=== PATIENT | female | born 1975 | race Caucasian/White ===

== ENCOUNTER 2017-07-15 10:41 | Outpatient (POV) | payer BC, SELFPAY | END 2017-07-15 12:07 | disposition home or self-care (01) | PROVIDERS: PCP Podiatrist; Visit Provider Podiatrist | DX: E11.610 Type 2 diabetes mellitus with diabetic neuropathic arthropathy (principal); Z89.422 Acquired absence of other left toe(s) | CPT/HCPCS: 99214; G0127 ==

== ENCOUNTER → 2017-10-19 11:19 | Outpatient (CLI) | payer OTHER, MEDICAID, SELFPAY ==
--- NOTE | 2017-10-19 11:20 | XR_ITS ---
XR foot RT min 3V HISTORY: Charcot foot, foot pain ORDERING PHYSICIAN: Evelyn Wagner DPM PATIENT AGE: 42 years COMPARISON: None FINDINGS: No fracture or dislocation. No lytic or blastic change. There is normal mineralization.. The joint spaces are well-preserved. No significant degenerative/arthritic changes. No erosive changes evident. There is a small calcaneal spur. Generalized vascular calcification is present. IMPRESSION: No acute finding, small calcaneal spur
--- NOTE | 2017-10-19 11:20 | XR_ITS ---
XR foot LT min 3V HISTORY: Charcot foot, postoperative evaluation, follow-up surgery ORDERING PHYSICIAN: Evelyn Wagner DPM PATIENT AGE: 42 years COMPARISON: None FINDINGS: No change within the medial bone plate and the long longitudinal screw within the first metatarsal into the medial cuneiform, navicular, and distal talus. No change in the long screw within the head of the third metatarsal through the cuboid. K wires remain in place in the mid foot. Decreased attenuation is once again noted in the mid foot at the base of the fourth metatarsal and lateral cuneiform area. There is diffuse osteopenia. There has been amputation of the PIP joint of the second toe. Diffuse osteopenia involves the heads of the second, third, fourth, and fifth metatarsals with mild flattening of the second metatarsal head IMPRESSION: There is been no significant change compared to the previous exam. Overall no change in the extensive postsurgical changes with osteopenia as described above
== END ==
PROVIDERS: Visit Provider Podiatrist
DX: Z98.890 Other specified postprocedural states (principal)
CPT/HCPCS: 73630

== ENCOUNTER → 2017-11-08 18:30 | Outpatient (REF) | payer MEDICAID, SELFPAY | LOC: LAB 18:30 | PROVIDERS: Visit Provider Podiatrist | DX: Z51.89 Encounter for other specified aftercare (principal) | CPT/HCPCS: 87070; 87077; 87186; 87205 ==

== ENCOUNTER → 2019-02-23 12:19 | Outpatient (CLI) | payer MEDICAID, SELFPAY ==
--- NOTE | 2019-02-23 12:27 | XR_ITS ---
XR foot wt bearing LT 3V HISTORY: ITS.REASON: pain prior fusion ORDERING PHYSICIAN: Evelyn Wagner DPM PATIENT AGE: 43 years COMPARISON: 05/04/2017 FINDINGS: There is a medial bone plate spanning from the distal talus medially to the mid aspect of the first metatarsal with good alignment. A long lag screw is present from the distal aspect of the first metatarsal into the medial cuneiform and navicular and into the distal talus unchanged. An additional lag screws noted within the distal aspect of the third metatarsal with the proximal tip just superficial to the the plantar and lateral aspect of the calcaneus. There are 2 pins directed the talus and navicular into the base of the fourth metatarsal additional and directed from the navicular region to the posterior aspect of the calcaneus. There is diffuse osteopenia and prominent space medial to the cuboid. There remains good alignment with overall no significant change from the previous study. There has been amputation at the PIP joint of the second toe. IMPRESSION: Postsurgical changes with prior fusion as described above overall not significantly changed
--- NOTE | 2019-02-23 12:27 | XR_ITS ---
XR ankle wt bearing RT min 3V HISTORY: ITS.REASON: pain ORDERING PHYSICIAN: Evelyn Wagner DPM PATIENT AGE: 43 years Comparison: None FINDINGS: No fracture or dislocation. No lytic or blastic change. There is normal mineralization.. The joint spaces are well-preserved. No significant degenerative/arthritic changes. No erosive changes evident. IMPRESSION: Negative ankle, no acute finding
--- NOTE | 2019-02-23 12:27 | XR_ITS ---
XR ankle wt bearing LT min 3V HISTORY: ITS.REASON: pain ORDERING PHYSICIAN: Evelyn Wagner DPM PATIENT AGE: 43 years Comparison: None FINDINGS: No fracture or dislocation. No lytic or blastic change. There is normal mineralization.. The joint spaces are well-preserved. No significant degenerative/arthritic changes. No erosive changes evident. IMPRESSION: Negative ankle, no acute finding
--- NOTE | 2019-02-23 12:27 | XR_ITS ---
XR foot wt bearing RT 3V HISTORY: ITS.REASON: pain ORDERING PHYSICIAN: Evelyn Wagner DPM PATIENT AGE: 43 years COMPARISON: None FINDINGS: No fracture or dislocation. No lytic or blastic change. There is normal mineralization.. The joint spaces are well-preserved. No significant degenerative/arthritic changes. No erosive changes evident. There is mild diffuse vascular calcification. IMPRESSION: Negative, no acute finding
== END ==
PROVIDERS: PCP Internal Medicine; Visit Provider Podiatrist
DX: E11.8 Type 2 diabetes mellitus with unspecified complications (principal); Z79.4 Long term (current) use of insulin
CPT/HCPCS: 73610; 73630

== ENCOUNTER → 2020-02-19 12:10 | Outpatient (CLI) | payer MEDICAID, SELFPAY ==
--- NOTE | 2020-02-19 12:13 | XR_ITS ---
PROCEDURE: XR ANKLE WT BEARING LT MIN 3V CLINICAL INDICATION: foot pain Pain COMPARISON: No exams were available for comparison FINDINGS: Lucencies noted in the distal tibia from prior external fixator. Postsurgical changes of the foot. The ankle joint has an unremarkable appearance. IMPRESSION: Negative ankle Dictated by: Gavin Conde MD 02/19/2020 13:43 Electronically signed by Gavin Conde MD in [place] 02/19/2020 13:43
--- NOTE | 2020-02-19 12:13 | XR_ITS ---
PROCEDURE: XR FOOT WT BEARING LT 3V CLINICAL INDICATION: foot pain Charcot foot COMPARISON: FTR3 FOOT-RT-3 VIEWS from 05/04/2017 FTL3 FOOT-LT-3 VIEWS from 06/03/2017 [id number] XR foot RT min 3V from 10/19/2017 [id number] XR foot LT min 3V from 10/19/2017 FINDINGS: FINDINGS: No change within the medial bone plate and the long longitudinal screw within the first metatarsal into the medial cuneiform, navicular, and distal talus. No change in the long screw within the head of the third metatarsal through the cuboid. The proximal aspect of this screw lies within the soft tissues and not within the calcaneus. K wires remain in place in the mid foot. Decreased attenuation is once again noted in the mid foot at the base of the fourth metatarsal and lateral cuneiform area. There is diffuse osteopenia. There has been amputation at the PIP joint of the second toe. Diffuse osteopenia involves the heads of the second, third, fourth, and fifth metatarsals with mild flattening of the second metatarsal head IMPRESSION: There is been no significant change compared to the previous exam. Overall no change in the extensive postsurgical changes with osteopenia as described above Dictated by: Gavin Conde MD 02/19/2020 13:41 Electronically signed by Gavin Conde MD in [place] 02/19/2020 13:41
--- NOTE | 2020-02-19 12:13 | XR_ITS ---
PROCEDURE: XR FOOT WT BEARING RT 3V CLINICAL INDICATION: foot pain COMPARISON: FTR3 FOOT-RT-3 VIEWS from 05/04/2017 FTL3 FOOT-LT-3 VIEWS from 06/03/2017 [id number] XR foot RT min 3V from 10/19/2017 [id number] XR foot LT min 3V from 10/19/2017 XR ANKLE WT BEARING RT MIN 3V from 02/19/2020 FINDINGS: No fracture or dislocation. No lytic or blastic change. There is normal mineralization. The joint spaces are well-preserved. No significant degenerative/arthritic changes. No erosive changes evident. Other findings:Vascular calcification noted. Small calcaneal spur. The ankle mortise is intact. Talar dome has an unremarkable appearance. IMPRESSION: No acute findings. Dictated by: Gavin Conde MD 02/19/2020 13:45 Electronically signed by Gavin Conde MD in [place] 02/19/2020 13:45
--- NOTE | 2020-02-19 12:13 | XR_ITS ---
PROCEDURE: XR FOOT WT BEARING RT 3V CLINICAL INDICATION: foot pain COMPARISON: FTR3 FOOT-RT-3 VIEWS from 05/04/2017 FTL3 FOOT-LT-3 VIEWS from 06/03/2017 [id number] XR foot RT min 3V from 10/19/2017 [id number] XR foot LT min 3V from 10/19/2017 XR ANKLE WT BEARING RT MIN 3V from 02/19/2020 FINDINGS: No fracture or dislocation. No lytic or blastic change. There is normal mineralization. The joint spaces are well-preserved. No significant degenerative/arthritic changes. No erosive changes evident. Other findings:Vascular calcification noted. Small calcaneal spur. The ankle mortise is intact. Talar dome has an unremarkable appearance. IMPRESSION: No acute findings. Dictated by: Gavin Conde MD 02/19/2020 13:45 Electronically signed by Gavin Conde MD in [place] 02/19/2020 13:45
== END ==
PROVIDERS: PCP Internal Medicine; Visit Provider Podiatrist
DX: E11.8 Type 2 diabetes mellitus with unspecified complications (principal); M14.672 Charcot's joint, left ankle and foot
CPT/HCPCS: 73610; 73630

== ENCOUNTER → 2020-03-18 11:49 | Outpatient (CLI) | payer MEDICAID, SELFPAY ==
--- NOTE | 2020-03-18 11:50 | US_ITS ---
APPROVED REPORT Exam Type: Ankle to Brachial Index Floor Director: RT Biju(R) Indications Non-healing Ulcer: Right charcot foot. 2nd toe left foot amputation Risk Factors Hypertension Hyperlipidemia Diabetes Pressures/Indices Right Indices Left Indices Brachial 159.00 mmHg Brachial 175.00 mmHg Low Thigh 213.00 mmHg 1.22 Low Thigh 210.00 mmHg 1.20 Calf 210.00 mmHg 1.20 Calf 0.00 mmHg 0.00 Ankle(PT) 117.00 mmHg 0.67 Ankle(PT) 90.00 mmHg 0.51 Ankle(DP) 198.00 mmHg 1.13 Ankle(DP) 0.00 mmHg 0.00 Digit 112.00 mmHg 0.64 Digit 125.00 mmHg 0.71 Findings RT JEAN CLAUDE=1.1 LT JEAN CLAUDE=0.5 RT TBI=0.6 LT TBI=0.7 Diminished pulses bilaterally Abnormal waveforms distally Conclusion RT JEAN CLAUDE=1.1 LT JEAN CLAUDE=0.5 RT TBI=0.6 LT TBI=0.7 Diminished pulses bilaterally Abnormal waveforms distally Moderate arterial disease on the left Electronically signed by : Gavin Conde MD 03/18/2020 15:32:09
== END ==
PROVIDERS: PCP Internal Medicine; Visit Provider Podiatrist
DX: L97.411 Non-pressure chronic ulcer of right heel and midfoot limited to breakdown of skin (principal)
CPT/HCPCS: 93923

== ENCOUNTER → 2020-04-15 17:38 | Outpatient (CLI) | payer MEDICAID, SELFPAY | PROVIDERS: Visit Provider Podiatrist | DX: Z51.89 Encounter for other specified aftercare (principal); L97.929 Non-pressure chronic ulcer of unspecified part of left lower leg with unspecified severity | CPT/HCPCS: 87070; 87077; 87186; 87205 ==

== ENCOUNTER → 2020-04-24 09:37 | Day surgery (SDC) | payer MEDICAID, SELFPAY ==
[2020-04-24] VITALS (12 sets, daily range): BP systolic 144–201; BP diastolic 91–111; PULSE 78–87; RESP 16–20; TEMP 36.6–37.2; O2SAT 92–97; BMI 40.0
--- NOTE | 2020-04-24 09:00 | IR_ITS ---
APPROVED REPORT Patient Location: Outpatient Sugar Controller: DAVON Dickerson RT (R) PROCEDURES Catheter placement in the left popliteal artery Left popliteal artery selective angiogram Catheter placed in the left superficial femoral artery Left superficial femoral artery selective angiogram Catheter placed in the left common iliac artery Left common iliac artery left internal iliac artery left external iliac artery and left common femoral artery angiogram INDICATION Marty class V claudication, Limb threatening ischemia with poorly healing lower extremity ulcers Informed consent was obtained prior to the procedure. COMPLICATIONS NONE Estimated Blood Loss: LESS THAN 10 ML TECHNIQUE 1% lidocaine used anesthetize the right groin the right femoral artery was accessed via the Salinger technique and a 5 Turkmen sheath was placed in the right femoral artery. A rim catheter was advanced to the distal abdominal aorta and used to cannulate the left common iliac artery. Angiography was performed. Using an advantage wire the wire was advanced to the superficial femoral artery. A JR4 catheter was then advanced to the left popliteal artery and angiography was performed. The catheter was then pulled back to the left superficial femoral artery and angiography was performed. The catheter was then pulled back the left common iliac artery where left common internal and external iliac artery angiography was performed as well as left common femoral angiography. At the end of the procedure the apparatus was removed the sheath was removed good hemostasis was achieved using manual pressure patient was transferred to the postop holding her stable condition ANGIOGRAPHIC RESULTS The left common internal and external iliac arteries are widely patent The left common femoral artery is widely patent The left profunda femoris artery is widely patent The left superficial femoral artery is widely patent with minimal 10% luminal irregularities The left popliteal artery is widely patent with minimal 10% luminal irregularities There is three-vessel runoff below the knee with widely patent vessels with excellent antegrade flow. The anterior tibialis artery does have a focal high-grade stenosis however the flow is normal distal to this stenosis with excellent extensive flow from the other 3 vessels. The posterior tibialis artery also has a focal severe stenosis with normal flow distal to the stenosis IMPRESSION Widely patent arteries as described above with excellent flow into the left foot Poorly healing lower extremity ulcers are either stemming from microvascular disease which is consistent with patient's end-stage nephropathy or possibly from venous insufficiency PLAN 1. Medical management for small vessel disease Electronically signed by : Karthik Aaron, 04/24/2020 14:12:16
[2020-04-24 10:14] LABS: Basophils # 0.1 K/mm3 (0-0.2); Basophils % 1.1 % (0.1-2.0); Eosinophils # 0.5 K/mm3 (0.0-0.4); Eosinophils % 4.4 % (0.1-12.0); Hematocrit 36.6 % (37.0-47.0); Hemoglobin 12.3 g/dL (12.2-16.2); Lymphocytes # 3.3 K/mm3 (0.7-4.5); Lymphocytes % 32.1 % (10-50); Mean Corpuscular HGB Conc 33.7 g/dL (31.8-35.4); Mean Corpuscular Hemoglobin 29.2 pg (27.0-31.2); Mean Corpuscular Volume 86.5 fl (81-99); Mean Platelet Volume 7.4 fl (7.4-10.4); Monocytes # 0.6 K/mm3 (0.1-1.0); Monocytes % 5.8 % (1.7-9.3); Neutrophils # 5.9 K/mm3 (1.8-7.8); Neutrophils % 56.6 % (37.0-80.0); Platelet Count 471 K/mm3 (142-424); Red Blood Count 4.23 M/mm3 (4.20-5.40); Red Cell Distribution Width 13.1 % (11.5-17.5); White Blood Count 10.3 K/mm3 (4.8-10.8)
[2020-04-24 10:47] LABS: Chloride 104 mmol/L (98-107); Potassium 4.6 mmoL/L (3.5-5.1); Sodium 137 mmol/L (136-145)
[2020-04-24 10:50] LABS: Anion Gap 11.6 mEq/L (5-15); Blood Urea Nitrogen 26 mg/dl (7-17); Calcium 9.5 mg/dl (8.4-10.2); Carbon Dioxide 26 mmol/L (22.0-30.0); Creatinine Clearance Estimated 75 mL/min (50-200); Estimated Glomerular Filt Rate 29 ml/min (>60); GFR (African American) 35 ML/MIN (>60); Glucose 187 mg/dl (74-100)
[2020-04-24 11:13] LABS: Coronavirus 19 IgG Antibody Negative (Negative); Coronavirus 19 IgM Antibody Negative (Negative)
== END ==
PROVIDERS: PCP Internal Medicine; Visit Provider Internal Medicine
DX: I70.248 Atherosclerosis of native arteries of left leg with ulceration of other part of lower leg (principal); E11.42 Type 2 diabetes mellitus with diabetic polyneuropathy; E66.9 Obesity, unspecified; L97.929 Non-pressure chronic ulcer of unspecified part of left lower leg with unspecified severity; Z79.4 Long term (current) use of insulin; R60.9 Edema, unspecified; R94.31 Abnormal electrocardiogram [ECG] [EKG]; N18.3 Chronic kidney disease, stage 3 (moderate); E11.22 Type 2 diabetes mellitus with diabetic chronic kidney disease
CPT/HCPCS: 36247; 36415; 75710; 80048; 85025; 86328; 99152; C1725; C1769; C1894; J1644

== ENCOUNTER → 2020-05-07 07:40 | Outpatient (CLI) | payer MEDICAID, SELFPAY ==
--- NOTE | 2020-05-07 07:40 | CA_ITS ---
APPROVED REPORT EXAM: Comprehensive 2D, Doppler, and color-flow Echocardiogram [employer]: Katey Wills RVT Ht: 5 ft 10 in Wt: 278lbs BSA: 2.40 BP: 141/79 mmHg Indications: ABN EKG,DM,HTN,HLD,RENAL DZ 2D Dimensions LVOT 2.19 cm (M/F) 1.5-2.5 M-Mode Dimensions RVDd 2.58 cm (0.9-2.6) LVDd 4.69 cm (3.5-5.7) LVDs 3.18 cm (3.5-5.7) IVSd 1.25 cm (0.6-1.1) PWd 0.86 cm (0.6-1.1) EF (Teich) 60.50% FS 32.20% EDV (Teich) 101.90 mL ESV (Teich) 40.30 mL LV Diastology E/A Ratio 1.13 Mitral Valve MV A Velocity 77.00 (40-130 cm/s) Left Ventricle Left atrium is mildly enlarged, left ventricle is normal size, mild concentric left ventricular hypertrophy, visually estimated ejection fraction 55% with no regional wall motion abnormality, diastolic parameters are inconclusive. Right Ventricle Right atrium and right ventricular normal size and contractility. Aortic Valve Aortic valve is minimally thickened and fibrosed, there is no aortic stenosis or aortic insufficiency. Mitral Valve Mitral valve is grossly normal, there is mild mitral regurgitation. Tricuspid Valve Tricuspid valve grossly normal, there is mild tricuspid regurgitation, tricuspid regurgitation jet velocity is inadequate for calculation of the right ventricular systolic pressure. Pulmonic Valve Pulmonic valve is poorly visualized. Great Vessels Aortic root is normal size. Pericardium No significant pericardial effusion noted Conclusion 1. Mildly enlarged left atrium, normal left ventricular size, mild concentric left ventricular hypertrophy, visually estimated ejection fraction 55% with no regional wall motion abnormality, diastolic parameters are inconclusive. 2. Mild mitral and tricuspid regurgitation. 3. No significant pericardial effusion noted. Electronically signed by : Theodore Finnegan, 05/07/2020 20:42:57
== END ==
PROVIDERS: PCP Internal Medicine; Visit Provider Nurse Practitioner Family
DX: E11.42 Type 2 diabetes mellitus with diabetic polyneuropathy (principal); I10 Essential (primary) hypertension; I73.9 Peripheral vascular disease, unspecified; L97.929 Non-pressure chronic ulcer of unspecified part of left lower leg with unspecified severity; N18.3 Chronic kidney disease, stage 3 (moderate); R94.31 Abnormal electrocardiogram [ECG] [EKG]; Z79.4 Long term (current) use of insulin
CPT/HCPCS: 93306

== ENCOUNTER → 2020-10-16 15:55 | Outpatient (CLI) | payer MEDICAID, SELFPAY ==
--- NOTE | 2020-10-16 16:00 | XR_ITS ---
PROCEDURE: XR FOOT WT BEARING LT 3V CLINICAL INDICATION: wound care Wound on top of the foot COMPARISON: CR [id number] XR foot RT min 3V from 10/19/2017 CR [id number] XR foot LT min 3V from 10/19/2017 CR XR FOOT WT BEARING RT 3V from 02/19/2020 CR XR FOOT WT BEARING LT 3V from 02/19/2020 FINDINGS: Bandage artifact is noted along the dorsal aspect of the midfoot. No change within the medial bone plate and the long longitudinal screw within the first metatarsal into the medial cuneiform, navicular, and distal talus. No change in the long screw within the head of the third metatarsal through the cuboid. The proximal aspect of this screw lies within the soft tissues and not within the calcaneus. K wires remain in place in the mid foot. Decreased attenuation is once again noted in the mid foot at the base of the fourth metatarsal and lateral cuneiform area. There is diffuse osteopenia. There has been amputation at the PIP joint of the second toe. Diffuse osteopenia involves the heads of the second, third, fourth, and fifth metatarsals with mild flattening of the second metatarsal head IMPRESSION: IMPRESSION: There is been no significant change compared to the previous exam. Overall no change in the extensive postsurgical changes with osteopenia as described above Dictated by: Gavin Conde MD 10/16/2020 16:22 Gavin Conde MD in [place] 10/16/2020 16:22
[2020-10-16 16:45] LABS: Basophils # 0.1 K/mm3 (0-0.2); Basophils % 0.7 % (0.1-2.0); Eosinophils # 0.5 K/mm3 (0.0-0.4); Eosinophils % 5.2 % (0.1-12.0); Hematocrit 37.2 % (37.0-47.0); Hemoglobin 12.1 g/dL (12.2-16.2); Lymphocytes # 3.3 K/mm3 (0.7-4.5); Lymphocytes % 32.7 % (10-50); Mean Corpuscular HGB Conc 32.5 g/dL (31.8-35.4); Mean Corpuscular Hemoglobin 27.8 pg (27.0-31.2); Mean Corpuscular Volume 85.7 fl (81-99); Mean Platelet Volume 7.4 fl (7.4-10.4); Monocytes # 0.6 K/mm3 (0.1-1.0); Monocytes % 5.9 % (1.7-9.3); Neutrophils # 5.6 K/mm3 (1.8-7.8); Neutrophils % 55.5 % (37.0-80.0); Platelet Count 441 K/mm3 (142-424); Red Blood Count 4.35 M/mm3 (4.20-5.40); Red Cell Distribution Width 14.4 % (11.5-17.5); White Blood Count 10.1 K/mm3 (4.8-10.8)
[2020-10-16 17:18] LABS: Erythrocyte Sedimentation Rate 118 mm/hr (0-20)
[2020-10-16 17:54] LABS: Alanine Aminotransferase 12 U/L (12-78); Albumin Level 3.5 g/dl (3.5-5.0); Albumin/Globulin Ratio 0.9 (1.1-1.8); Alkaline Phosphatase 87 U/L (38-126); Anion Gap 12.4 mEq/L (5-15); Aspartate Amino Transferase 17 U/L (14-36); Bilirubin,Total 0.3 mg/dl (0.2-1.3); Blood Urea Nitrogen 43 mg/dl (7-17); Calcium 9.9 mg/dl (8.4-10.2); Carbon Dioxide 29 mmol/L (22.0-30.0); Chloride 104 mmol/L (98-107); Estimated Glomerular Filt Rate 35 ml/min (>60); GFR (African American) 42 ML/MIN (>60); Glucose 112 mg/dl (74-100); Potassium 4.4 mmoL/L (3.5-5.1); Sodium 141 mmol/L (136-145); Total Protein,Serum 7.5 g/dl (6.3-8.2)
[2020-10-16 18:01] LABS: C-Reactive Protein 51.3 mg/L (0-4)
== END ==
PROVIDERS: PCP Internal Medicine; Visit Provider Nurse Practitioner
DX: E11.8 Type 2 diabetes mellitus with unspecified complications (principal); Z51.89 Encounter for other specified aftercare; Z79.4 Long term (current) use of insulin
CPT/HCPCS: 36415; 73630; 80053; 85025; 85651; 86140; 87070; 87077; 87186; 87205

== ENCOUNTER → 2020-11-06 10:13 | Outpatient (CLI) | payer MEDICAID, SELFPAY ==
[2020-11-06 10:45] LABS: Basophils # 0.1 K/mm3 (0-0.2); Basophils % 1.7 % (0.1-2.0); Eosinophils # 0.5 K/mm3 (0.0-0.4); Eosinophils % 5.9 % (0.1-12.0); Hematocrit 42.4 % (37.0-47.0); Hemoglobin 13.7 g/dL (12.2-16.2); Lymphocytes % 37.5 % (10-50); Mean Corpuscular HGB Conc 32.2 g/dL (31.8-35.4); Mean Corpuscular Hemoglobin 27.9 pg (27.0-31.2); Mean Corpuscular Volume 86.7 fl (81-99); Mean Platelet Volume 7.2 fl (7.4-10.4); Monocytes # 0.4 K/mm3 (0.1-1.0); Monocytes % 5.1 % (1.7-9.3); Neutrophils % 49.7 % (37.0-80.0); Platelet Count 349 K/mm3 (142-424); Red Blood Count 4.89 M/mm3 (4.20-5.40); Red Cell Distribution Width 14.7 % (11.5-17.5)
[2020-11-06 11:01] LABS: Alanine Aminotransferase 22 U/L (12-78); Albumin Level 3.9 g/dl (3.5-5.0); Albumin/Globulin Ratio 1.1 (1.1-1.8); Alkaline Phosphatase 98 U/L (38-126); Anion Gap 13.6 mEq/L (5-15); Aspartate Amino Transferase 24 U/L (14-36); Bilirubin,Total 0.4 mg/dl (0.2-1.3); Blood Urea Nitrogen 36 mg/dl (7-17); Calcium 10.3 mg/dl (8.4-10.2); Carbon Dioxide 29 mmol/L (22.0-30.0); Chloride 100 mmol/L (98-107); Estimated Glomerular Filt Rate 37 ml/min (>60); GFR (African American) 45 ML/MIN (>60); Globulin 3.6 g/dL (1.3-3.2); Glucose 257 mg/dl (74-100); Potassium 4.6 mmoL/L (3.5-5.1); Sodium 138 mmol/L (136-145); Total Protein,Serum 7.5 g/dl (6.3-8.2)
[2020-11-06 11:02] LABS: Hemoglobin A1C 9.9 % (4.0-6.0)
[2020-11-06 11:14] LABS: Erythrocyte Sedimentation Rate 25 mm/hr (0-20)
== END ==
PROVIDERS: Visit Provider Nurse Practitioner
DX: E11.9 Type 2 diabetes mellitus without complications (principal); L97.529 Non-pressure chronic ulcer of other part of left foot with unspecified severity; Z79.4 Long term (current) use of insulin
CPT/HCPCS: 36415; 80053; 83036; 85025; 85651; 86140

== ENCOUNTER → 2021-01-16 16:51 | Outpatient (CLI) | payer MEDICAID, SELFPAY | PROVIDERS: Visit Provider Podiatrist | DX: Z51.89 Encounter for other specified aftercare (principal); E11.621 Type 2 diabetes mellitus with foot ulcer; L97.929 Non-pressure chronic ulcer of unspecified part of left lower leg with unspecified severity; Z79.4 Long term (current) use of insulin; L97.529 Non-pressure chronic ulcer of other part of left foot with unspecified severity | CPT/HCPCS: 87070; 87077; 87186; 87205 ==

== ENCOUNTER → 2021-07-15 09:40 | Outpatient (CLI) | payer MEDICAID, SELFPAY ==
--- NOTE | 2021-07-15 09:49 | XR_ITS ---
PROCEDURE: XR FOOT WT BEARING LT 3V CLINICAL INDICATION: foot wound COMPARISON: CR [id number] XR foot RT min 3V from 10/19/2017 CR XR FOOT WT BEARING RT 3V from 02/19/2020 CR XR FOOT WT BEARING LT 3V from 02/19/2020 CR XR FOOT WT BEARING LT 3V from 10/16/2020 FINDINGS: S/p midfoot fusion. No change in the bone plate extending from the medial aspect of the 1st metatarsal to the talus. No change in the long lag screws extending from the proximal aspect of the 1st metatarsal into the medial cuneiform, navicular, and talus. No change in the long lag screw extending from the distal aspect of the 1st metatarsal to the cuboid and along the lateral aspect and inferior aspect of the calcaneus. The proximal aspect of the screw is not within the calcaneus. The screw appears to exit the bony cortex of the 3rd metatarsal in its mid aspect. Wires also remain in place. There is good alignment.. Lucency in once again noted medial to the cuboid and the base of the 3rd metatarsal. IMPRESSION: Status post midfoot fusion as described above. No change in the bony hardware with good alignment. Dictated by: Gavin Conde MD 07/15/2021 10:57 Gavin Conde MD in [place] 07/15/2021 10:57
[2021-07-15 10:26] LABS: Basophils # 0.1 K/mm3 (0-0.2); Basophils % 1.3 % (0.1-2.0); Eosinophils # 0.5 K/mm3 (0.0-0.4); Eosinophils % 4.7 % (0.1-12.0); Hematocrit 40.6 % (37.0-47.0); Hemoglobin 13.3 g/dL (12.2-16.2); Lymphocytes # 2.4 K/mm3 (0.7-4.5); Lymphocytes % 23.8 % (10-50); Mean Corpuscular HGB Conc 32.6 g/dL (31.8-35.4); Mean Corpuscular Hemoglobin 29.4 pg (27.0-31.2); Mean Platelet Volume 8.6 fl (7.4-10.4); Monocytes # 0.5 K/mm3 (0.1-1.0); Neutrophils # 6.6 K/mm3 (1.8-7.8); Neutrophils % 65.1 % (37.0-80.0); Platelet Count 590 K/mm3 (142-424); Red Blood Count 4.51 M/mm3 (4.20-5.40); Red Cell Distribution Width 13.1 % (11.5-17.5); White Blood Count 10.1 K/mm3 (4.8-10.8)
[2021-07-15 11:06] LABS: Hemoglobin A1C 10.3 % (4.0-6.0)
[2021-07-15 11:08] LABS: Alanine Aminotransferase 15 U/L (12-78); Albumin Level 3.5 g/dl (3.5-5.0); Alkaline Phosphatase 93 U/L (38-126); Anion Gap 10.9 mEq/L (5-15); Aspartate Amino Transferase 23 U/L (14-36); Bilirubin,Total 0.3 mg/dl (0.2-1.3); Blood Urea Nitrogen 21 mg/dl (7-17); Calcium 10.7 mg/dl (8.4-10.2); Carbon Dioxide 31 mmol/L (22.0-30.0); Chloride 101 mmol/L (98-107); Estimated Glomerular Filt Rate 35 ml/min (>60); GFR (African American) 42 ML/MIN (>60); Globulin 3.4 g/dL (1.3-3.2); Glucose 232 mg/dl (74-100); Potassium 4.9 mmoL/L (3.5-5.1); Sodium 138 mmol/L (136-145); Total Protein,Serum 6.9 g/dl (6.3-8.2)
[2021-07-15 11:13] LABS: C-Reactive Protein 20.8 mg/L (0-4)
== END ==
PROVIDERS: PCP Nurse Practitioner Family; Visit Provider Podiatrist
DX: L03.116 Cellulitis of left lower limb (principal); L97.522 Non-pressure chronic ulcer of other part of left foot with fat layer exposed; L03.112 Cellulitis of left axilla; Z51.89 Encounter for other specified aftercare; Z98.890 Other specified postprocedural states; E11.42 Type 2 diabetes mellitus with diabetic polyneuropathy; L02.612 Cutaneous abscess of left foot; Z79.4 Long term (current) use of insulin
CPT/HCPCS: 36415; 73630; 80053; 83036; 85025; 86140; 87070; 87077; 87186; 87205

== ENCOUNTER → 2021-07-29 10:12 | Outpatient (CLI) | payer MEDICAID, SELFPAY ==
--- NOTE | 2021-07-29 10:15 | XR_ITS ---
PROCEDURE: XR FOOT WT BEARING LT 3V CLINICAL INDICATION: wound encounter COMPARISON: CR XR FOOT WT BEARING RT 3V from 02/19/2020 CR XR FOOT WT BEARING LT 3V from 02/19/2020 CR XR FOOT WT BEARING LT 3V from 10/16/2020 CR XR FOOT WT BEARING LT 3V from 07/15/2021 FINDINGS: S/p midfoot fusion. No change in the bone plate extending from the medial aspect of the 1st metatarsal to the talus. No change in the long lag screws extending from the proximal aspect of the 1st metatarsal into the medial cuneiform, navicular, and talus. No change in the long lag screw extending from the distal aspect of the 1st metatarsal to the cuboid and along the lateral aspect and inferior aspect of the calcaneus. The proximal aspect of the screw is not within the calcaneus. The screw appears to exit the bony cortex of the 3rd metatarsal in its mid aspect. Wires also remain in place. There is good alignment.. Lucency in once again noted medial to the cuboid and the base of the 3rd metatarsal. There is mild generalized soft tissue swelling along the anterior aspect of the foot IMPRESSION: No change status post foot fusion as described above Dictated by: Gavin Conde MD 07/29/2021 17:01 Gavin Conde MD in [place] 07/29/2021 17:01
[2021-07-29 11:27] LABS: Basophils # 0.1 K/mm3 (0-0.2); Basophils % 1.5 % (0.1-2.0); Eosinophils # 0.3 K/mm3 (0.0-0.4); Eosinophils % 4.2 % (0.1-12.0); Hematocrit 39.9 % (37.0-47.0); Lymphocytes # 2.7 K/mm3 (0.7-4.5); Lymphocytes % 33.7 % (10-50); Mean Corpuscular HGB Conc 32.6 g/dL (31.8-35.4); Mean Corpuscular Hemoglobin 28.8 pg (27.0-31.2); Mean Corpuscular Volume 88.6 fl (81-99); Mean Platelet Volume 7.3 fl (7.4-10.4); Monocytes # 0.5 K/mm3 (0.1-1.0); Monocytes % 5.5 % (1.7-9.3); Neutrophils # 4.5 K/mm3 (1.8-7.8); Neutrophils % 55.1 % (37.0-80.0); Platelet Count 396 K/mm3 (142-424); Red Cell Distribution Width 13.2 % (11.5-17.5); White Blood Count 8.1 K/mm3 (4.8-10.8)
[2021-07-29 11:46] LABS: Chloride 103 mmol/L (98-107); Potassium 4.9 mmoL/L (3.5-5.1); Sodium 138 mmol/L (136-145)
[2021-07-29 11:48] LABS: Alanine Aminotransferase 23 U/L (12-78); Aspartate Amino Transferase 29 U/L (14-36); Blood Urea Nitrogen 34 mg/dl (7-17); Estimated Glomerular Filt Rate 37 ml/min (>60); GFR (African American) 45 ML/MIN (>60)
[2021-07-29 11:49] LABS: Albumin Level 3.7 g/dl (3.5-5.0); Albumin/Globulin Ratio 1.2 (1.1-1.8); Alkaline Phosphatase 84 U/L (38-126); Anion Gap 11.9 mEq/L (5-15); Bilirubin,Total 0.2 mg/dl (0.2-1.3); Calcium 9.1 mg/dl (8.4-10.2); Carbon Dioxide 28 mmol/L (22.0-30.0); Globulin 3.1 g/dL (1.3-3.2); Glucose 101 mg/dl (74-100); Total Protein,Serum 6.8 g/dl (6.3-8.2)
[2021-07-29 11:55] LABS: C-Reactive Protein 0.7 mg/L (0-4)
[2021-07-29 15:44] LABS: Erythrocyte Sedimentation Rate 37 mm/hr (0-20)
== END ==
PROVIDERS: PCP Internal Medicine; Visit Provider Podiatrist
DX: L97.923 Non-pressure chronic ulcer of unspecified part of left lower leg with necrosis of muscle (principal); L97.525 Non-pressure chronic ulcer of other part of left foot with muscle involvement without evidence of necrosis; L03.116 Cellulitis of left lower limb; M14.672 Charcot's joint, left ankle and foot; E11.42 Type 2 diabetes mellitus with diabetic polyneuropathy; Z79.4 Long term (current) use of insulin; Z51.89 Encounter for other specified aftercare
CPT/HCPCS: 36415; 73630; 80053; 85025; 85651; 86140

== ENCOUNTER → 2022-09-01 08:53 | Outpatient (CLI) | payer MEDICAID, SELFPAY ==
--- NOTE | 2022-09-01 08:58 | XR_ITS ---
FINAL REPORT CLINICAL HISTORY: foot pain COMPARISON: 07/29/2021 FINDINGS: AP, oblique and lateral views of the left foot were obtained. Again identified are extensive postoperative changes to the foot. The hardware appears intact and unchanged. There is worsening osteopenia. The middle and distal phalanx of the 2nd toe has been resected. On the lateral view, there is subjective worsening involving the anterior subluxation of the talus with respect to the distal tibia. IMPRESSION: Extensive postoperative changes without acute fracture. Possible worsening of the anterior subluxation of the talus with respect to the distal tibia. Reviewed, Interpreted and Dictated by Danika Mays MD Transcribed by Jo Arroyo Authenticated and [facility]
== END ==
PROVIDERS: PCP Nurse Practitioner Family; Visit Provider Podiatrist
DX: M14.672 Charcot's joint, left ankle and foot (principal)
CPT/HCPCS: 73630

== ENCOUNTER → 2022-10-22 13:37 | Outpatient (CLI) | payer MEDICAID, SELFPAY ==
--- NOTE | 2022-10-22 13:59 | XR_ITS ---
FINAL REPORT CLINICAL HISTORY: foot pain and swelling x 3 days COMPARISON: 10/16/2020 FINDINGS: LEFT FOOT Three views of the left foot were obtained. There are postoperative changes throughout the foot with a screw plate, multiple screws and K-wires present. The hardware is not significantly changed. There are moderate and severe degenerative changes. There is a comminuted, subacute appearing fracture of the talar dome. Soft tissue calcifications or bony fragments are seen along the anterior aspect of the tibiotalar joint. There also appears to be a fracture of the anterior inferior tibia. There is anterior subluxation of the main portion of the talus and remainder of the foot. IMPRESSION: Postoperative and degenerative changes throughout the foot as described. Comminuted, subacute appearing fracture of the talar dome. Probable fracture of the anterior inferior tibia. Anterior subluxation of the main portion of the talus and remainder of the foot. Reviewed, Interpreted and Dictated by Roc Burkett III, MD Transcribed by Erica Rosas Authenticated and [facility]
[2022-10-22 14:27] LABS: Basophils # 0.1 K/mm3 (0-0.2); Basophils % 1.3 % (0.1-2.0); Eosinophils # 0.4 K/mm3 (0.0-0.4); Eosinophils % 4.5 % (0.1-12.0); Hematocrit 33.6 % (37.0-47.0); Hemoglobin 10.8 g/dL (12.2-16.2); Lymphocytes # 2.5 K/mm3 (0.7-4.5); Lymphocytes % 28.2 % (10-50); Mean Corpuscular HGB Conc 32.3 g/dL (31.8-35.4); Mean Corpuscular Volume 86.9 fl (81-99); Mean Platelet Volume 7.5 fl (7.4-10.4); Monocytes # 0.5 K/mm3 (0.1-1.0); Monocytes % 5.7 % (1.7-9.3); Neutrophils # 5.2 K/mm3 (1.8-7.8); Neutrophils % 60.2 % (37.0-80.0); Platelet Count 438 K/mm3 (142-424); Red Blood Count 3.87 M/mm3 (4.20-5.40); Red Cell Distribution Width 13.6 % (11.5-17.5); White Blood Count 8.7 K/mm3 (4.8-10.8)
--- NOTE | 2022-10-22 14:32 | XR_ITS ---
FINAL REPORT CLINICAL HISTORY: LT ankle sprain COMPARISON: 09/01/2022 FINDINGS: LEFT ANKLE Three views demonstrate extensive postoperative changes. There is a comminuted fracture of the talar dome and posterior talus. There is anterior subluxation of the main portion of the talus and foot. There is also a fracture of the anterior inferior tibia. There is soft tissue swelling. IMPRESSION: New, comminuted fracture of the talar dome, posterior talus and inferior tibia. Reviewed, Interpreted and Dictated by Roc Burkett III, MD Transcribed by Kezia Brito Authenticated and [facility]
[2022-10-22 14:59] LABS: Erythrocyte Sedimentation Rate 124 mm/hr (0-20)
[2022-10-22 15:03] LABS: Chloride 103 mmol/L (98-107); Potassium 4.4 mmoL/L (3.5-5.1); Sodium 139 mmol/L (136-145)
[2022-10-22 15:06] LABS: Alanine Aminotransferase 14 U/L (12-78); Albumin Level 3.2 g/dl (3.5-5.0); Albumin/Globulin Ratio 0.7 (1.1-1.8); Alkaline Phosphatase 92 U/L (38-126); Anion Gap 11.4 mEq/L (5-15); Aspartate Amino Transferase 19 U/L (14-36); Bilirubin,Total 0.4 mg/dl (0.2-1.3); Blood Urea Nitrogen 37 mg/dl (7-17); Calcium 8.6 mg/dl (8.4-10.2); Carbon Dioxide 29 mmol/L (22.0-30.0); Estimated Glomerular Filt Rate 34 ml/min (>60); GFR (African American) 42 ML/MIN (>60); Globulin 4.3 g/dL (1.3-3.2); Glucose 201 mg/dl (74-100); Total Protein,Serum 7.5 g/dl (6.3-8.2)
[2022-10-22 15:18] LABS: C-Reactive Protein 37.4 mg/L (0-4)
[2022-10-22 16:01] LABS: Hemoglobin A1C 10.3 % (4.0-6.0)
== END ==
PROVIDERS: PCP Internal Medicine; Visit Provider Podiatrist
DX: S93.402A Sprain of unspecified ligament of left ankle, initial encounter (principal); E11.42 Type 2 diabetes mellitus with diabetic polyneuropathy; R60.0 Localized edema; Z79.4 Long term (current) use of insulin
CPT/HCPCS: 36415; 73610; 73630; 80053; 83036; 85025; 85651; 86140

== ENCOUNTER → 2022-11-02 09:44 | Outpatient (CLI) | payer MEDICAID, SELFPAY ==
--- NOTE | 2022-11-02 09:49 | XR_ITS ---
FINAL REPORT CLINICAL HISTORY: foot pain FINDINGS: LEFT FOOT: COMPARISON: October 21, 2022 Three views of the left foot were obtained. There is extensive orthopedic hardware present. There is a sideplate and screws securing the medial foot. There are orthopedic screws in the 1st and 3rd digital rays. There is a widening of the mortise with subluxation and sclerosis. IMPRESSION: Extensive postoperative and neuropathic changes. Reviewed, Interpreted and Dictated by Teddy Choudhury MD Transcribed by Uriah Jenkins Authenticated and . [facility]
--- NOTE | 2022-11-02 09:49 | XR_ITS ---
FINAL REPORT CLINICAL HISTORY: ankle pain FINDINGS: LEFT ANKLE: COMPARISON: October 21, 2022 Three views of the left ankle were obtained. There is extensive orthopedic hardware present. There is a sideplate and screws securing the medial foot. There are orthopedic screws in the 1st and 3rd digital rays. There is a widening of the mortise with subluxation and sclerosis. IMPRESSION: Extensive postoperative and neuropathic changes. Reviewed, Interpreted and Dictated by Teddy Choudhury MD Transcribed by Uriah Jenkins Authenticated and [facility]
--- NOTE | 2022-11-02 10:07 | CT_ITS ---
FINAL REPORT TECHNIQUE: Axial imaging of the left foot was obtained without contrast. Reformatted images were also obtained and reviewed. This study was performed with techniques to keep radiation doses as low as reasonably achievable (ALARA). Individualized dose reduction techniques using automated exposure control or adjustment of mA and/or kV according to the patient's size were employed. CLINICAL HISTORY: charcot FINDINGS: There is overlying cast material and streak artifact from orthopedic hardware securing the 1st digital ray. Orthopedic screw in the 3rd metatarsal extends to the calcaneus but not anchored in the calcaneus. There is inferior subluxation of the cuboid relative to the calcaneus. Synostosis and sclerosis is seen at the intertarsal joints. IMPRESSION: Advanced neuropathic changes as above. Reviewed, Interpreted and Dictated by eTddy Choudhury MD Transcribed by Kezia Brito Authenticated and [facility]
--- NOTE | 2022-11-02 10:07 | CT_ITS ---
FINAL REPORT TECHNIQUE: Axial imaging of the left ankle was obtained without contrast. Reformatted images were also obtained and reviewed. This study was performed with techniques to keep radiation doses as low as reasonably achievable (ALARA). Individualized dose reduction techniques using automated exposure control or adjustment of mA and/or kV according to the patient's size were employed. CLINICAL HISTORY: charcot FINDINGS: There is an overlying cast as well as streak artifact from orthopedic hardware which obscures detail. There is disruption of the mortise. Anterior subluxation and sclerosis is seen of the talus with widening of the joint space and extensive fragmentation consistent with Charcot joint. There is inferior subluxation of the tarsal cuboid relative to the calcaneus seen on sagittal imaging. There is moderate to severe soft tissue edema surrounding the ankle. IMPRESSION: Advanced neuropathic changes with subluxation, sclerosis and fragmentation. Reviewed, Interpreted and Dictated by Teddy Choudhury MD Transcribed by Kezia Brito Authenticated and [facility]
== END ==
PROVIDERS: PCP Internal Medicine; Visit Provider Podiatrist
DX: M25.572 Pain in left ankle and joints of left foot (principal); M14.672 Charcot's joint, left ankle and foot
CPT/HCPCS: 73610; 73630; 73700

== ENCOUNTER → 2022-11-16 09:26 | Outpatient (CLI) | payer MEDICAID, SELFPAY ==
--- NOTE | 2022-11-16 09:29 | XR_ITS ---
FINAL REPORT CLINICAL HISTORY: left foot charcot COMPARISON: PLAIN FILM FROM 11/02/2022, CT LOWER EXTREMITY DATED 11/02/2022 FINDINGS: LEFT ANKLE Three views demonstrate an overlying splint. Sideplate and screws secure the dorsal intertarsal and tarsometatarsal joints. There are orthopedic screws in the 1st and 3rd digital rays. IMPRESSION: No significant change as compared to the prior exam. Reviewed, Interpreted and Dictated by Teddy Choudhury MD Transcribed by Kandice Betancourt Authenticated and [facility]
== END ==
PROVIDERS: PCP Internal Medicine; Visit Provider Podiatrist
DX: M14.672 Charcot's joint, left ankle and foot (principal)
CPT/HCPCS: 73610

== ENCOUNTER → 2023-01-04 11:41 | Outpatient (CLI) | payer MEDICAID, SELFPAY ==
--- NOTE | 2023-01-04 11:44 | US_ITS ---
FINAL REPORT CLINICAL HISTORY: decreased sensation, pre-op testing, charcot foot FINDINGS: ANKLE/BRACHIAL INDICES FINDINGS: Pressure indices are as follows: RIGHT LOWER EXTREMITY: Ankle brachial pressure index: 1.3 Comments: Normal LEFT LOWER EXTREMITY: Ankle brachial pressure index: 1.1 Comments: Normal IMPRESSION: No evidence of significant obstructive peripheral vascular disease of the lower extremities. Reviewed, Interpreted and Dictated by Roc Burkett III, MD Transcribed by Uriah Jenkins Authenticated and [facility]
--- NOTE | 2023-01-04 12:28 | ECG_ITS ---
APPROVED REPORT Exam: Resting ECG HR:72 bpm ECG Measurements Heart Rate 72 AXES AZ 148 P 26 QRSd 141 QRS 102 QT 414 T -7 QTc 439 Conclusion SINUS RHYTHM INDETERMINATE AXIS RIGHT BUNDLE BRANCH BLOCK [120+ ms QRS DURATION, UPRIGHT V1, 40+ ms S IN I/aVL/V4/V5/V6] ABNORMAL ECG UNCONFIRMED REPORT Electronically signed by : José Miguel Alexandre MD 01/05/2023 21:22:31
--- NOTE | 2023-01-04 12:48 | XR_ITS ---
FINAL REPORT CLINICAL HISTORY: Pre op charcot surgery FINDINGS: Two views of the left tibia-fibula were obtained. There is postoperative change of the tibia. There is degenerative and postoperative change of the ankle. There is chronic deformity of the talar dome. There is anterior dislocation of the talus and foot at the tibiotalar joint. IMPRESSION: Anterior dislocation of the talus and foot at the tibiotalar joint. Reviewed, Interpreted and Dictated by Roc Burkett III, MD Transcribed by Uriah Jenkins Authenticated and [facility]
--- NOTE | 2023-01-04 12:48 | XR_ITS ---
FINAL REPORT CLINICAL HISTORY: pre-op charcot foot surgery..diabetic,,htn FINDINGS: Two views of the chest were obtained. The heart size and pulmonary vascularity are within normal limits. The mediastinum is normal. No acute pulmonary abnormality is identified. There is no pneumothorax. The bony thorax is intact. IMPRESSION: No active cardiopulmonary disease. Reviewed, Interpreted and Dictated by Roc Burkett III, MD Transcribed by Uriah Jenkins Authenticated and [facility]
--- NOTE | 2023-01-04 12:48 | XR_ITS ---
FINAL REPORT CLINICAL HISTORY: left ankle charcot FINDINGS: LEFT ANKLE: Three views of the left ankle were obtained. There are degenerative changes of the ankle and foot. There is chronic deformity of the talar dome. There are several soft tissue calcifications. There is a anterior dislocation of the talus and foot at the tibiotalar joint. IMPRESSION: Chronic and postoperative changes. Anterior dislocation of the talus and foot. Reviewed, Interpreted and Dictated by Roc Burkett III, MD Transcribed by Uriah Jenkins Authenticated and [facility]
--- NOTE | 2023-01-04 12:48 | XR_ITS ---
FINAL REPORT CLINICAL HISTORY: foot pain FINDINGS: LEFT CALCANEUS 2 views were obtained. There are extensive postoperative changes. There is deformity of the talus. There is anterior dislocation of the talus and foot. IMPRESSION: Anterior dislocation of the talus and foot. Reviewed, Interpreted and Dictated by Roc Burkett III, MD Transcribed by Uriah Jenkins Authenticated and [facility]
--- NOTE | 2023-01-04 12:48 | XR_ITS ---
FINAL REPORT CLINICAL HISTORY: left foot charcot FINDINGS: LEFT FOOT: Three views of the left foot were obtained. There are degenerative changes of the of the foot with a side plate, multiple screws in several wires. There is severe degenerative change of the midfoot. There is chronic deformity of the talar dome. There are several soft tissue calcifications. There is a anterior dislocation of the talus and foot at the tibiotalar joint. IMPRESSION: Chronic and postoperative changes. Anterior dislocation of the talus and foot. Reviewed, Interpreted and Dictated by Roc Burkett III, MD Transcribed by Uriah Jenkins Authenticated and [facility]
[2023-01-04 14:11] LABS: Basophils # 0.1 K/mm3 (0-0.2); Eosinophils # 0.3 K/mm3 (0.0-0.4); Eosinophils % 3.3 % (0.1-12.0); Hematocrit 38.4 % (37.0-47.0); Hemoglobin 12.6 g/dL (12.2-16.2); Hemoglobin A1C 8.9 % (4.0-6.0); Lymphocytes % 30.9 % (10-50); Mean Corpuscular HGB Conc 32.8 g/dL (31.8-35.4); Mean Corpuscular Hemoglobin 28.9 pg (27.0-31.2); Mean Corpuscular Volume 87.9 fl (81-99); Mean Platelet Volume 7.9 fl (7.4-10.4); Monocytes # 0.6 K/mm3 (0.1-1.0); Neutrophils # 5.7 K/mm3 (1.8-7.8); Neutrophils % 58.8 % (37.0-80.0); Platelet Count 320 K/mm3 (142-424); Red Blood Count 4.37 M/mm3 (4.20-5.40); Red Cell Distribution Width 14.9 % (11.5-17.5); White Blood Count 9.7 K/mm3 (4.8-10.8)
[2023-01-04 14:24] LABS: Chloride 101 mmol/L (98-107); Potassium 4.9 mmoL/L (3.5-5.1); Sodium 135 mmol/L (136-145)
[2023-01-04 14:27] LABS: Alanine Aminotransferase 18 U/L (12-78); Albumin Level 3.4 g/dl (3.5-5.0); Alkaline Phosphatase 151 U/L (38-126); Anion Gap 11.9 mEq/L (5-15); Aspartate Amino Transferase 21 U/L (14-36); Bilirubin,Total 0.2 mg/dl (0.2-1.3); Blood Urea Nitrogen 60 mg/dl (7-17); Carbon Dioxide 27 mmol/L (22.0-30.0); Estimated Glomerular Filt Rate 19 ml/min (>60); GFR (African American) 23 ML/MIN (>60); Globulin 3.3 g/dL (1.3-3.2); Total Protein,Serum 6.7 g/dl (6.3-8.2)
[2023-01-04 14:28] LABS: Glucose 192 mg/dl (74-100)
[2023-01-04 14:33] LABS: C-Reactive Protein 16.5 mg/L (0-4)
[2023-01-04 14:57] LABS: Erythrocyte Sedimentation Rate 72 mm/hr (0-20)
[2023-01-13 05:31] LABS: 1,25 Dihydroxy Vitamin D 20 pg/mL (.); 1,25-Dihydroxy, Vitamin D-2 10 pg/mL (.); 1,25-Dihydroxy, Vitamin D-3 10 pg/mL (.)
== END ==
LOC: RT 11:41
PROVIDERS: PCP Internal Medicine; Visit Provider Podiatrist
DX: E11.42 Type 2 diabetes mellitus with diabetic polyneuropathy (principal); E11.610 Type 2 diabetes mellitus with diabetic neuropathic arthropathy; I73.9 Peripheral vascular disease, unspecified; Z79.4 Long term (current) use of insulin; M14.672 Charcot's joint, left ankle and foot; S92.102A Unspecified fracture of left talus, initial encounter for closed fracture; S82.892G Other fracture of left lower leg, subsequent encounter for closed fracture with delayed healing; S92.14 Dome fracture of talus; E55.9 Vitamin D deficiency, unspecified
CPT/HCPCS: 36415; 71046; 73590; 73610; 73630; 73650; 80053; 82652; 83036; 85025; 85651; 86140; 93005; 93923

== ENCOUNTER → 2023-01-07 10:43 | Outpatient (CLI) | payer MEDICAID, SELFPAY | PROVIDERS: PCP Nurse Practitioner Family; Visit Provider Internal Medicine | DX: R06.02 Shortness of breath (principal) | CPT/HCPCS: 93306 ==

== ENCOUNTER 2023-01-13 06:28 | Observation (INO) | payer MEDICAID, SELFPAY ==
[2023-01-12 11:29] VITALS: BMI 41.4
[2023-01-13] VITALS (18 sets, daily range): BP systolic 92–161; BP diastolic 51–90; PULSE 72–88; RESP 15–18; TEMP 36.4–37.3; O2SAT 95–99; BMI 42.9
[2023-01-13 06:38] LABS: Coronavirus 19, PCR Not Detected (NotDetected); Influenza A, PCR Not Detected (NotDetected); Influenza B, PCR Not Detected (NotDetected)
[2023-01-13 07:03] LABS: POC Glucose,Bedside 91 (70-110)
[2023-01-13 07:08] LABS: Anion Gap 15.4 mEq/L (5-15); Blood Urea Nitrogen 49 mg/dl (7-17); Calcium 9.4 mg/dl (8.4-10.2); Carbon Dioxide 29 mmol/L (22.0-30.0); Chloride 99 mmol/L (98-107); Creatinine Clearance Estimated 35 mL/min (50-200); Estimated Glomerular Filt Rate 25 ml/min (>60); GFR (African American) 30 ML/MIN (>60); Glucose 98 mg/dl (74-100); Potassium 4.4 mmoL/L (3.5-5.1); Sodium 139 mmol/L (136-145)
[2023-01-13 07:10] LABS: HCG Qualitative, Serum Negative (Negative)
--- NOTE | 2023-01-13 08:57 | P.PN_ITS ---
[facility] Disclaimer: The information contained in this section may have been updated after the patient was seen, as this information can be updated by other users. Medical History Abnormal ankle brachial index (JEAN CLAUDE) Abnormal EKG Cataracts, bilateral CKD (chronic kidney disease) Edema History of amputation of toe History of diabetes mellitus History of retinal detachment HLD (hyperlipidemia) HTN (hypertension) Nonhealing ulcer of left lower extremity Surgical History History of History of foot operation History of skin graft Family History Other Family history of CVA Family history of breast cancer Family history of diabetes mellitus Family history of heart disease Social History Smoking Status: Never smoker second hand exposure: No alcohol intake: never substance use type: denies use current occupational status: unemployed Travel in the last 8 weeks: None adopted: Yes household members: spouse housing: house current occupational exposures/hazards: No caffeine: Yes [facility] Anesthesia Checklist Patient Identification Patient Identification: Arm Band Structural Data Admitted From: Home Planned Operative Procedure/s: Left Charcot Reconstruction, External Fixation Device Application Consent for Planned Operative Procedure(s) Verified: Yes Verified Documents: Surgical Consent and History and Physical NPO Status Verified Time NPO: 00:00 Additional verifications Anesthesia Reactions: No Hx Blood Transfusions: No Blood Transfusion Reaction: No Airway Assessment C-Spine Mobility Assessed: Yes TMJ Mobility Assessed: Yes Dentition: Good Dentition Neurological Assessment Level of Consciousness: Awake and Alert Anesthesia Plan Anesthesia Risk discussed: Yes Anesthesia Plan: Verified ASA Class: III Anesthesia Type: General w/block (Left Popliteal/Femoral Nerve Block. Risks/benefits of blocks discussed. Pt verbalized understanding. Femoral nerve block chosen after unable to get good visualization with adductor canal.)
--- NOTE | 2023-01-13 09:02 | HMH.PHAINT1 ---
Pharmacy Intervention Comments: Discharge counseling completed. Patient had no new meds on her med list, but a few new ones were sent in for her yesterday. She said the provider had spoken with her a bit about them, but I still outlined which were new (levofloxacin, doxycycline, Lovenox, fluconazole, oxycodone). I said possible side effects of the antibiotics included stomach upset or diarrhea and said to take with food to help avoid this. Also said the oxycodone was every 4 to 6 hours only as needed for pain and may make her drowsy. Patient was told to hold her metformin until her next follow up with her PCP. She verbalized understanding and had no questions.
--- NOTE | 2023-01-13 09:03 | HMH.PHAINT1 ---
Pharmacy Intervention Comments: Home medication list verified by list from outside pharmacy.
--- NOTE | 2023-01-13 10:11 | SUR.OPER ---
0930- FAMILY UPDATED PER MD ORDER AT THIS TIME BY KATTY MONTANO. EVERYTHING IS GOING WELL.
--- NOTE | 2023-01-13 10:30 | SUR.OPER ---
1030- FAMILY UPDATED PER MD ORDER BY JULIA MONTANO. PLEASE LET THEM KNOW THAT THE HARDWARE IS OUT AND WE ARE WORKING ON THE ANKLE FUSION.
--- NOTE | 2023-01-13 12:30 | SUR.OPER ---
1230- FAMILY UPDATED PER MD ORDER BY KATTY MONTANO. EVERYTHING IS GOING WELL.
--- NOTE | 2023-01-13 14:13 | SUR.OPER ---
1413- FAMILY UPDATED PER MD ORDER BY KATTY MONTANO. EVERYTHING IS GOING FINE. WE ARE PUTTING THE FIXATION ON.
--- NOTE | 2023-01-13 14:35 | XR_ITS ---
FINAL REPORT CLINICAL HISTORY: LEFT CHARCOT IN OR 6.28 fluoro time FINDINGS: LEFT ANKLE Two views of the left foot demonstrate extensive fixation device which obscures visualization. An intramedullary maverick is seen in the distal tibia which is fused to the talus. There are overlying skin masha. A K-wire is seen in the medial intertarsal joints. Two other screws are noted in the calcaneus. IMPRESSION: Postoperative changes as above Reviewed, Interpreted and Dictated by Teddy Choudhury MD Transcribed by Kezia Brito Authenticated and [facility]
--- NOTE | 2023-01-13 15:14 | P.PNANES_ITS ---
[facility] Anesthesia Record Part I Anesthesia Record I Intake, IV Amount: 2,700 Estimated blood loss (mL): 50 Urine output (mL): 200 Blood Products used (#): none Blood Pressure: 161/90 SaO2: 97 Pulse Rate: 78 Respiratory Rate: 16 Temperature: 99.1 F Patient is:: Drowsy and Stable Stable to PACU at:: 15:10
--- NOTE | 2023-01-13 15:20 | XR_ITS ---
FINAL REPORT CLINICAL HISTORY: post op, charcot/exfix FINDINGS: LEFT FOOT Three views of the left foot demonstrate extensive fixation device which obscures visualization. An intramedullary maverick is seen in the distal tibia which is fused to the talus. There are overlying skin masha. A K-wire is seen in the medial intertarsal joints. Two other screws are noted in the calcaneus. IMPRESSION: Postoperative changes as above. Reviewed, Interpreted and Dictated by Teddy Choudhury MD Transcribed by Kezia Brito Authenticated and [facility]
--- NOTE | 2023-01-13 15:20 | XR_ITS ---
FINAL REPORT CLINICAL HISTORY: post op, charcot and exfix FINDINGS: LEFT ANKLE Two views of the left foot demonstrate extensive fixation device which obscures visualization. An intramedullary maverick is seen in the distal tibia which is fused to the talus. There are overlying skin masha. A K-wire is seen in the medial intertarsal joints. Two other screws are noted in the calcaneus. IMPRESSION: Postoperative changes as above. Reviewed, Interpreted and Dictated by Teddy Choudhury MD Transcribed by Kezia Brito Authenticated and [facility]
--- NOTE | 2023-01-13 15:27 | EXP.PHA.CONS ---
Pharmacy Consult Date: 01/13/23 Time: 15:29 Referring provider: DR HINSON Reason for Consult:: VANCOMYCIN DOSING CONSULT Allergies Allergy/AdvReac Type Severity Reaction Status Date / Time No Known Allergies Allergy Verified 01/07/23 09:57 Home Medications Medication Instructions Recorded Confirmed Type aspirin 81 mg tablet,delayed 81 mg PO DAILY Heart disease 30 10/19/17 01/13/23 History release days ##30 ferrous sulfate 325 mg (65 mg 325 mg PO DAILY Supplement 30 days 10/19/17 01/13/23 History iron) tablet ##30 chlorthalidone 25 mg tablet 25 mg PO DAILY Fluid 30 days #30 09/15/18 01/13/23 History tabs magnesium oxide 400 mg (241.3 mg 400 mg PO BID Supplement 30 days 09/15/18 01/13/23 History magnesium) tablet #60 tabs metformin 1,000 mg tablet 1,000 mg PO BID Diabetes 30 days 09/15/18 01/13/23 History #60 tabs linagliptin 5 mg tablet 5 mg PO DAILY Diabetes 30 days ##30 02/19/20 01/13/23 History ergocalciferol (vitamin D2) 1,250 50,000 unit PO QWEEK Supplement 30 04/15/20 01/13/23 History mcg (50,000 unit) capsule days #1 cap atorvastatin 80 mg tablet 80 mg PO QHS Cholesterol 05/07/20 01/13/23 History ertugliflozin 15 mg tablet 15 mg PO DAILY Diabetes 05/07/20 01/13/23 History lisinopril 2.5 mg tablet 2.5 mg PO DAILY High blood pressure 08/05/20 01/13/23 History insulin degludec 200 unit/mL (3 82 unit SQ BID Diabetes 03/13/21 01/13/23 History mL) subcutaneous pen glipizide 5 mg tablet 5 mg PO DAILY Diabetes 05/04/22 01/13/23 History loratadine 10 mg tablet 10 mg PO DAILY Allergies 01/07/23 01/13/23 History amlodipine 5 mg tablet (Norvasc) 5 mg PO DAILY High blood pressure 01/13/23 01/13/23 History bisoprolol fumarate 10 mg tablet 10 mg PO DAILY High blood pressure 01/13/23 01/13/23 History doxycycline hyclate 100 mg tablet 100 mg PO BID Infection 01/13/23 History enoxaparin 40 mg/0.4 mL 40 mg (0.4 mL) SQ QDAY DVT ppx 6 01/13/23 Rx subcutaneous syringe (Lovenox) weeks #16.8 mL fluconazole 100 mg tablet 100 mg PO DAILY Infection 01/13/23 History (Diflucan) levofloxacin 500 mg tablet 500 mg PO Q24H infection 2 weeks 01/13/23 Rx #14 tabs ondansetron 4 mg disintegrating 4 mg PO Q6H Nausea and vomiting 01/13/23 History tablet oxycodone 5 mg tablet 5 mg PO Q4-6H PRN Post op pain 01/13/23 History New Prescriptions to Start Prescriptions: Height: 1.78 m Weight: 131.088 kg Laboratory Results:: Laboratory Results - last 24 hr 01/13/23 06:34: SARS-CoV-2 (PCR) Not detected, Influenza A Untype (PCR) Not detected, Influenza Type B (PCR) Not detected 01/13/23 06:52: POC Glucose 91 01/13/23 06:55: Sodium 139, Potassium 4.4, Chloride 99, Carbon Dioxide 29, Anion Gap 15.4 H, BUN 49 H, Creatinine 2.10 H, Estimated Creat Clear 35, Estimated GFR 25 L, Est GFR ( Amer) 30 L, Glucose 98, Calcium 9.4 01/13/23 06:55: Serum HCG, Qual Negative Medical History: Medical History (Updated 01/12/23 @ 11:27 by Jozef Nicole RN) Abnormal ankle brachial index (JEAN CLAUDE) Abnormal EKG Cataracts, bilateral CKD (chronic kidney disease) Edema History of amputation of toe History of diabetes mellitus History of retinal detachment HLD (hyperlipidemia) HTN (hypertension) Nonhealing ulcer of left lower extremity Assessment and Plan Assessment and plan all Dx Assessment and Plan for all problems:: Pharmacokinetic dosing service Objective: Age: 47 yo Serum creatinine: 2.1 mg/dL Height: 70.0 Inches Weight (kg): 131.088 Assessment: IBW (kg): 68.50 Dosing wt(kg): 93.5 Estimated Creatinine clearance (ml/min): 48.4 CRCL method: Cockcroft and Gault using adjusted body weight Drug selected: Vancomycin Loading dose (mg): Vd (liters): 65.5 (factor used: 0.7 L/kg) [place] (hr-1): 0.045 Half life (hrs): 15.40 CLvanco=?? 2.947 L/hr Recommended dose: 1500 mg Interval: 24 hrs
--- NOTE | 2023-01-13 15:47 | EXP.OP.NOTE ---
Date of procedure: 01/13/23 Pre-op Diagnosis:: Left Charcot neuroarthropathy Left ankle fracture dislocation Left previous midfoot charcot reconstruction w/ retained orthopedic hardware Left ankle instability Left foot/ankle synovitis Post-op Diagnosis:: Same Procedure performed:: Left foot/ankle Charcot reconstruction Left tibiotalocalcaneal arthrodesis Application of multiplane external fixation device () Excision of talus fracture fragment Ankle synovectomy Peroneal tenosynovectomy Partial excision right tarsal () Left tendo Achilles lengthening () Hardware removal () Large bone allograft () Excision of ankle lipoma Synovectomy tarsometatarsal/intertarsal joint () Manual prep and insertion of drug delivery device, intramedullary () Application of amniotic graft Surgeon:: Evelyn Wagner DPM EGG SEPARATOR:: Shane Toth Anesthesia: GETA and regional (left popliteal, saph nerve block) Estimated blood loss (mL): 50 Clinical Note:: Patient is a 47-year-old diabetic female with history of Charcot with left foot Charcot reconstruction. She now has an ankle fracture dislocation. Plan for Charcot reconstruction and fracture stabilization in December or January once glucose is better controlled. Discussed surgery to include: hardware removal, ankle fracture stabilization via TTC arthrodesis, possible revision of TN and CC joint arthrodesis. Conservative treatment has included immobilization in splint, fracture boot, oral antibiotics, serial labs and x-rays, diabetes management and fracture persist. We discussed surgery. All risks and benefits were discussed including but not limited to: damage to blood vessels and nerves, bleeding, infection, wound complications, delayed, mal or non-union of bone, post-traumatic arthritis, need for further surgery, implant failure, need for removal of implant, prolonged or permanent swelling of the extremity, prolonged or permanent pain or deformity, CRPS/RSD, DVT/PE, and anesthetic complications including . No guarantees were given. All questions fully answered. The patient verbalized understanding and agreed to proceed with surgery. Consent was obtained. Operative findings:: Left foot Charcot with previous reconstruction and retained orthopedic hardware. Left ankle fracture dislocation with Charcot changes noted to the ankle joint. The tibia had fragmentation noted anteriorly. The talus had subluxation and fragmentation noted. Pieces of the talus were removed. Left foot Charcot deformity history of midfoot charcot collapse, retained beams in medial column and 3rd metatarsal to lateral column. Medial column plate and beams were removed without complication. The first metatarsal head had fragmentation and cortical erosion noted, bone sent for pathology. No evidence of purulence, malodor, deep infection or osteomyelitis. 1 smooth K wire was left intact to the medial foot. Bone consistent with Charcot: Soft and irregular with some areas of sclerotic nonviable bone. Ankle and subtalar joint had synovitis. Fibrotic scar tissue noted to the midfoot and navicular. Overall this case took 2 hours longer than normal due to patient's body habitus requiring extensive dissection, the Charcot complicated nature of the deformity with the poor bone quality, and revisional nature of the procedure including hardware removal. Operative note:: On this date and time patient was deemed an appropriate surgical candidate. Anesthesia performed a pre-op regional popliteal nerve block. With informed consent signed, the patient was taken to the operating theater. The patient was positioned supine. General anesthesia was induced. Tourniquet was applied to the left thigh at 250 mmHg. IV Vanco, Levo given. Left lower extremity prepped and draped in normal sterile fashion. Left Tendon Achilles Lengthening: Attention was directed to the posterior leg. Three stab incisions where made overlying the Achilles. Utilizing the three
--- NOTE | 2023-01-13 15:48 | PC.NURSE ---
arrived to room by bed from surgery
--- NOTE | 2023-01-13 16:07 | EXP.ORTH.CON ---
History of Present Illness *Admission Date: 01/13/23 *Reason for visit:: Post op Charcot *History of present illness: Patient is a 47-year-old diabetic female with a history of chronic kidney disease and PVD who presents for Charcot reconstruction today. Patient underwent a lengthy surgery including hardware removal, tibial talar calcaneal (TTC) arthrodesis and application of external fixation device. No intraoperative complications. She will be admitted per the hospitalist team before observation postoperatively due to her multiple comorbidities including diabetes, chronic kidney disease, hypertension, PVD and morbid obesity. [facility] Disclaimer: The information contained in this section may have been updated after the patient was seen, as this information can be updated by other users. Medical History Abnormal ankle brachial index (JEAN CLAUDE) Abnormal EKG Cataracts, bilateral CKD (chronic kidney disease) Edema History of amputation of toe History of diabetes mellitus History of retinal detachment HLD (hyperlipidemia) HTN (hypertension) Nonhealing ulcer of left lower extremity Surgical History History of History of foot operation History of skin graft Family History Family history of heart disease Family history of CVA Family history of breast cancer Family history of diabetes mellitus Social History Smoking Status: Never smoker second hand exposure: No alcohol intake: never substance use type: denies use current occupational status: unemployed Travel in the last 8 weeks: None adopted: Yes household members: spouse housing: house current occupational exposures/hazards: No caffeine: Yes Review of Systems Review of Systems Review of systems:: pertinent systems reviewed and negative unless documented below Constitutional Constitutional: Reports system reviewed and no additional complaints, except as documented Eyes Eyes: Reports system reviewed and no additional complaints, except as documented ENT Ears, Nose, Mouth, and Throat: Reports system reviewed and no additional complaints, except as documented and Reports dry mouth *Cardiovascular Cardiovascular: Reports system reviewed and no additional complaints, except as documented and Reports leg edema *Respiratory Respiratory: Reports system reviewed and no additional complaints, except as documented *Gastrointestinal Gastrointestinal: Reports system reviewed and no additional complaints, except as documented *Genitourinary Genitourinary: Reports system reviewed and no additional complaints, except as documented *Musculoskeletal Musculoskeletal: Reports system reviewed and no additional complaints, except as documented and Reports limited range of motion Integumentary/Breasts Skin/Breast: Reports system reviewed and no additional complaints, except as documented *Neurologic Neurologic: Reports system reviewed and no additional complaints, except as documented Psychiatric Psychiatric: Reports system reviewed and no additional complaints, except as documented Endocrine Endocrine: Reports system reviewed and no additional complaints, except as documented Hematologic/Lymphatic Hematologic/Lymphatic: Reports system reviewed and no additional complaints, except as documented Allergic/Immunologic Allergic/Immunologic: Reports system reviewed and no additional complaints, except as documented Meds Home Medications and Allergies Home Medications Medication Instructions Recorded Confirmed Type aspirin 81 mg tablet,delayed 81 mg PO DAILY Heart disease 10/19/17 01/13/23 History release days ##30 ferrous sulfate 325 mg (65 mg 325 mg PO DAILY Supplement 30 days 10/19/17 01/13/23 History iron) tablet ##30 chlorthalidone 25 mg tablet 25 mg PO
[2023-01-13 16:41] LABS: POC Glucose,Bedside 250 (70-110)
[2023-01-13 16:48] LABS: POC Glucose,Bedside 210 (70-110)
--- NOTE | 2023-01-13 17:29 | EXP.HP ---
History of Present Illness *Admission Date: 01/13/23 *Reason for visit:: charcot reconstruction, monitoring overnight *History of present illness: Patient is a 47-year-old diabetic female with a history of chronic kidney disease and PVD who presents for Charcot reconstruction today. Patient underwent a lengthy surgery including hardware removal, tibial talar calcaneal (TTC) arthrodesis and application of external fixation device. No intraoperative complications. Her case was discussed with the Surgeon and the patient was admitted postoperatively due to her multiple comorbidities including diabetes, chronic kidney disease, hypertension, PVD and morbid obesity. Upon arrival to the Medical floor the patient c/o serve nausea. Denies any pain. The plan is for discharge tomorrow. [facility] Disclaimer: The information contained in this section may have been updated after the patient was seen, as this information can be updated by other users. Medical History Abnormal ankle brachial index (JEAN CLAUDE) Abnormal EKG Cataracts, bilateral CKD (chronic kidney disease) Edema History of amputation of toe History of diabetes mellitus History of retinal detachment HLD (hyperlipidemia) HTN (hypertension) Nonhealing ulcer of left lower extremity Surgical History History of History of foot operation History of skin graft Family History Family history of heart disease Family history of CVA Family history of breast cancer Family history of diabetes mellitus Social History Smoking Status: Never smoker second hand exposure: No alcohol intake: never substance use type: denies use current occupational status: unemployed Travel in the last 8 weeks: None adopted: Yes household members: spouse housing: house current occupational exposures/hazards: No caffeine: Yes Review of Systems Review of Systems Review of systems:: pertinent systems reviewed and negative unless documented below Constitutional Constitutional: Reports system reviewed and no additional complaints, except as documented and Reports as per HPI Eyes Eyes: Reports system reviewed and no additional complaints, except as documented ENT Ears, Nose, Mouth, and Throat: Reports system reviewed and no additional complaints, except as documented *Cardiovascular Cardiovascular: Reports system reviewed and no additional complaints, except as documented *Respiratory Respiratory: Reports system reviewed and no additional complaints, except as documented *Gastrointestinal Gastrointestinal: Reports system reviewed and no additional complaints, except as documented *Genitourinary Genitourinary: Reports system reviewed and no additional complaints, except as documented *Musculoskeletal Musculoskeletal: Reports limited range of motion (on the left leg due to s/p surgery ) *Neurologic Neurologic: Reports system reviewed and no additional complaints, except as documented Meds Home Medications and Allergies Home Medications Medication Instructions Recorded Confirmed Type aspirin 81 mg tablet,delayed 81 mg PO DAILY Heart disease 10/19/17 01/13/23 History release days ##30 ferrous sulfate 325 mg (65 mg 325 mg PO DAILY Supplement 30 days 10/19/17 01/13/23 History iron) tablet ##30 chlorthalidone 25 mg tablet 25 mg PO DAILY Fluid 30 days #30 09/15/18 01/13/23 History tabs magnesium oxide 400 mg (241.3 mg 400 mg PO BID Supplement 30 days 09/15/18 01/13/23 History magnesium) tablet #60 tabs metformin 1,000 mg tablet 1,000 mg PO BID Diabetes 30 days 09/15/18 01/13/23 History #60 tabs linagliptin 5 mg tablet 5 mg PO DAILY Diabetes 30 days ##30 02/19/20 01/13/23 History ergocalciferol (vitamin D2) 1,250 50,000 unit PO QWEEK Supplement 04/15/20 01/13/23 Histor
[2023-01-13 20:52] LABS: POC Glucose,Bedside 276 (70-110)
[2023-01-13 23:52] LABS: POC Glucose,Bedside 230 (70-110)
[2023-01-14] VITALS: BP 113/85; PULSE 97; RESP 16; TEMP 36.4; O2SAT 96
[2023-01-14 04:00] VITALS: BP 110/59; PULSE 101; RESP 16; TEMP 36.7; O2SAT 92; BMI 43.3
[2023-01-14 05:14] LABS: POC Glucose,Bedside 143 (70-110)
--- NOTE | 2023-01-14 07:05 | P.PNANES_ITS ---
[facility] Anesthesia Record Part II Anesthesia Record Part II Discharge Time: 15:40 Destination: Medical Surgical Department PACU nurse assessment reviewed?: Yes Patient Condition:: Good Anesthesia Complications:: None Swallowing reflex intact?: Yes Cyanosis?: No Blood Pressure: 137/84 Pulse Rate: 80 Temperature: 99.1 F Mental Status: Alert & Oriented Pain level:: 0 Nausea and/or vomitting:: None Intake, IV Amount: 0
[2023-01-14 07:06] VITALS: BP 137/84; PULSE 80; TEMP 37.3
[2023-01-14 07:06] LABS: Chloride 105 mmol/L (98-107); Potassium 5.3 mmoL/L (3.5-5.1); Sodium 135 mmol/L (136-145)
[2023-01-14 07:09] LABS: Alanine Aminotransferase 22 U/L (12-78); Albumin Level 2.6 g/dl (3.5-5.0); Albumin/Globulin Ratio 0.9 (1.1-1.8); Alkaline Phosphatase 40 U/L (38-126); Anion Gap 13.3 mEq/L (5-15); Aspartate Amino Transferase 31 U/L (14-36); Bilirubin,Total 0.3 mg/dl (0.2-1.3); Blood Urea Nitrogen 51 mg/dl (7-17); Calcium 8.9 mg/dl (8.4-10.2); Carbon Dioxide 22 mmol/L (22.0-30.0); Creatinine Clearance Estimated 33 mL/min (50-200); Estimated Glomerular Filt Rate 25 ml/min (>60); GFR (African American) 30 ML/MIN (>60); Globulin 2.8 g/dL (1.3-3.2); Glucose 117 mg/dl (74-100); Total Protein,Serum 5.4 g/dl (6.3-8.2)
[2023-01-14 07:11] LABS: Microscopic,Cath URINE MICROSCOPIC (MICROSCOPIC)
[2023-01-14 07:18] LABS: Appearance,Urine/Cath CLEAR (Clear); Bilirubin,Cath Negative (Negative); Blood, Urine/Cath 3+ (Negative); Color,Urine/Cath YELLOW (Yellow); Glucose,Urine/Cath (UA) 2+ (Negative); Ketones,Urine/Cath Negative (Negative); Leukocyte Esterase,Cath Negative (Negative); Nitrate,Cath Negative (Negative); PH,Urine/Cath 5.5 (5.0-8.5); Protein,Urine/Cath 2+ (Negative); Specific Gravity, Urine/Cath >= 1.030 (1.005-1.030); Urobilinogen,Cath 0.2 EU/dl (0.2)
[2023-01-14 07:36] LABS: Bacteria,Urine/Cath TRACE /lpf; Squamous Epithelial Ur./Cath Occasional #/hpf (0-5)
[2023-01-14 07:37] LABS: Yeast,Urine/Cath 4+
[2023-01-14 08:00] VITALS: BP 105/56; PULSE 106; RESP 22; TEMP 36.5; O2SAT 92
--- NOTE | 2023-01-14 08:29 | EXP.ORTH.PN ---
Subjective *Date: 01/14/23 *Time: 08:36 Interval history: Patient resting comfortably in bed. She reports nausea and vomiting yesterday has resolved this morning. Reports some dizziness with fast movement. Demonstrated incentive spirometer usage. Lynn catheter still in place, plan for removal this morning. Reports no pain to the left lower extremity. Denies shortness of breath/chest pain. Ortho Exam (Inpt) Vital signs and Labs for Last 24 Hours: Temp Pulse Resp BP Pulse Ox 97.7 F 106 H 22 105/56 L 92 L 01/14/23 08:00 01/14/23 08:00 01/14/23 08:00 01/14/23 08:00 01/14/23 08:00 Laboratory Results - last 24 hr 01/13/23 08:00: Urine Color Yellow, Urine Appearance Clear, Urine pH 5.5, Ur Specific [place] >= 1.030, Urine Protein 2+, Urine Glucose (UA) 2+, Urine Ketones Negative, Urine Blood 3+, Urine Nitrate Negative, Urine Bilirubin Negative, Urine Urobilinogen 0.2, Ur Leukocyte Esterase Negative, Urine RBC 3-5, Urine WBC 3-5, Ur Squamous Epith Cells Occasional, Urine Bacteria Trace, Urine Yeast 4+ 01/13/23 15:12: POC Glucose 210 H 01/13/23 16:28: POC Glucose 250 H 01/13/23 20:43: POC Glucose 276 H 01/13/23 23:44: POC Glucose 230 H 01/14/23 04:58: POC Glucose 143 H 01/14/23 06:24: Sodium 135 L, Potassium 5.3 H D, Chloride 105, Carbon Dioxide 22, Anion Gap 13.3, BUN 51 H, Creatinine 2.10 H, Estimated Creat Clear 33, Estimated GFR 25 L, Est GFR ( Amer) 30 L, Glucose 117 H, Calcium 8.9, Total Bilirubin 0.3, AST 31, ALT 22, Alkaline Phosphatase 40, Total Protein 5.4 L, Albumin 2.6 L, Globulin 2.8, Albumin/Globulin Ratio 0.9 L Temp Pulse Resp BP Pulse Ox 98.3 F 78 18 117/66 97 01/13/23 15:50 01/13/23 15:50 01/13/23 15:50 01/13/23 15:50 01/13/23 15:50 Laboratory Results - last 24 hr 01/13/23 06:34: SARS-CoV-2 (PCR) Not detected, Influenza A Untype (PCR) Not detected, Influenza Type B (PCR) Not detected 01/13/23 06:52: POC Glucose 91 01/13/23 06:55: Sodium 139, Potassium 4.4, Chloride 99, Carbon Dioxide 29, Anion Gap 15.4 H, BUN 49 H, Creatinine 2.10 H, Estimated Creat Clear 35, Estimated GFR 25 L, Est GFR ( Amer) 30 L, Glucose 98, Calcium 9.4 01/13/23 06:55: Serum HCG, Qual Negative I & O for Labs for Last 24 Hours: Intake & Output 01/11/23 01/12/23 01/13/23 01/14/23 11:59 11:59 11:59 11:59 Intake Total 3420 / 3420 Output Total 1100 / 1100 Balance 2320 / 2320 Weight 289 lb 292 lb 11.2 oz Intake & Output 01/11/23 01/12/23 01/13/23 01/14/23 11:59 11:59 11:59 11:59 Intake Total 2700 / 2700 Balance 2700 / 2700 Weight 289 lb 290 lb 8 oz Constitutional: Present no acute distress and morbidly obese Head: Present normocephalic Neck: Present normal inspection Respiratory: Present normal respiratory effort and able to speak in complete sentences Cardiac: Present pedal pulses present GI: Present soft Rectal (female): Present deferred (female): Present deferred Extremities: Present normal inspection and edema Skin: Present intact and warm Neuro: Present Motor Function Intact, oriented x 3 and moves all extremities; Absent Sensory Function Intact (Secondary to diabetic neuropathy) Ankle: left: swelling Comment:: External fixation device and dressing clean dry and intact to the left lower extremity. Patient denies pain to the area. Some vibration sensation but no lightheaded sensation secondary to nerve block and diabetic neuropathy. Capillary fill time and pulses at baseline. Comments:: At baseline. Assessment and Plan *Assessment and plan (1) Diabetes mellitus: Status: Chronic Qualifiers: Diabetes mellitus complication detail: with polyneuropathy Diabetes mellitus complication status: with neurologic complications Diabetes mellitus salvage determiner insulin use: with chcf use Diabetes mellitus type: type 2 Qualified Code(s): E11.42 - Type 2 diabetes mellitus with diabetic polyneuropathy; Z79.4 - FPC (current) use of insulin
[2023-01-14 09:04] LABS: Basophils % 0.2 % (0.1-2.0); Eosinophils # 0.2 K/mm3 (0.0-0.4); Eosinophils % 1.9 % (0.1-12.0); Hematocrit 25.9 % (37.0-47.0); Hemoglobin 8.4 g/dL (12.2-16.2); Lymphocytes # 1.9 K/mm3 (0.7-4.5); Lymphocytes % 17.1 % (10-50); Mean Corpuscular HGB Conc 32.6 g/dL (31.8-35.4); Mean Corpuscular Hemoglobin 28.1 pg (27.0-31.2); Mean Corpuscular Volume 86.3 fl (81-99); Mean Platelet Volume 8.1 fl (7.4-10.4); Monocytes # 0.7 K/mm3 (0.1-1.0); Monocytes % 5.9 % (1.7-9.3); Neutrophils # 8.3 K/mm3 (1.8-7.8); Neutrophils % 74.9 % (37.0-80.0); Platelet Count 259 K/mm3 (142-424); Red Cell Distribution Width 15.3 % (11.5-17.5); White Blood Count 11.1 K/mm3 (4.8-10.8)
--- NOTE | 2023-01-14 10:18 | PC.NURSE ---
Moderate amount of sanguineous/serosanguineous drainage on posterior dressing when out of bed. Dressing reinforced per orders. SHERI suction intact with 5 ml bloody drainage
[2023-01-14 10:44] LABS: POC Glucose,Bedside 196 (70-110)
--- NOTE | 2023-01-14 11:01 | CARE MANAGER ---
Spoke with patient who needs walker and BSC. Patient agrees with Tricia to bring before going home as she doesn't know DME suppliers in [facility]. Information sent to [facility] and will be delivered prior to discharge.CHARMAINE Suero
--- NOTE | 2023-01-14 11:03 | HMH.PTEV ---
Physical Therapy Evaluation Rehab PT IP Evaluation Start: 01/13/23 15:13 Freq: ONCE Status: Active Protocol: Document 01/14/23 09:30 PHORNE (Rec: 01/14/23 11:03 PHORNE [id number]) Subjective/History History History 47 yowf adm to [facility] S/P L cnkle Charcot reconstruction with ex-fix placement. She reports she had a previous surgery very similar to this in the past. She has a WKS, but no other AD or equipment at home at this time. She reports she lives with her spouse, no steps to enter the home, and is I will all mobility prior to adm. Subjective Subjective Currently she c/o expected post-op pain in the L LE. She also reports she was nauseated after surgery yesterday evening, but is some better this am. Rehab PT IP Eval Objective Appearance Patient Behavior Appropriate Patient Orientation Person,Place,Time Difficulty following instructions none Speech Pattern Clear Ambulation Patient Able to Ambulate No Balance Ability to Arise Able, uses arms to help Sitting Balance Steady, safe Standing Balance Steady, wide stance Dynamic Sitting Balance Ability Good Dynamic Standing Balance Ability Good Transfers Bed Transfer Ability Independent Chair Transfer Ability Supervision/Stand by Sit to Stand Bed Transfer Ability Supervision/Stand by Sit to Stand Chair Transfer Ability Supervision/Stand by ROM All Extremities PT ROM Status WFL Abnormal ROM Comment except L ankle NT MMT All Extremities PT MMT WFL Abnormal MMT Grade except L ankle NT Rehab PT IP prob,goals,plan Problems Date of Evaluation: 01/14/23 Discharge Plan PT Discharge Plan Pt is appropriate to return home once medically stable for d/c. Moderate amt of sanguineous drainage noted on the posterior aspect of her dressings this am, nsg alerted , and dressings were reinforced per recs. Recommend RW and BSC for home use to maintain safety and NWB
--- NOTE | 2023-01-14 11:06 | EXP.DC.SUM ---
General Admission date:: 01/13/23 Discharge date: 01/14/23 HPI HPI HPI: Patient is a 47-year-old diabetic female with a history of chronic kidney disease and PVD who presents for Charcot reconstruction today.? Patient underwent a lengthy surgery including hardware removal, tibial talar calcaneal (TTC) arthrodesis and application of external fixation device.? No intraoperative complications.? Her case was discussed with the Surgeon and the patient was admitted postoperatively due to her multiple comorbidities including diabetes, chronic kidney disease, hypertension, PVD and morbid obesity.? Upon arrival to the Medical floor the patient c/o serve nausea. Denies any pain.? The plan is for discharge tomorrow.? Hospital Course Hospital Course Hospital Course: Patient is a 47-year-old diabetic female with a history of chronic kidney disease and PVD who presents for Charcot reconstruction today.? Patient underwent a lengthy surgery including hardware removal, tibial talar calcaneal (TTC) arthrodesis and application of external fixation device.? No intraoperative complications.? Patient is done well overnight. Nausea and vomiting has subsided. Feeling better today. Stable for discharge home. Discussed case with podiatry. Problems addressed as follows: S/P CHARCOT'S JOINT OF LEFT FOOT reconstruction -Taken for surgery on 01/13. Tolerated procedure well. No complications. Polar pack behind left knee to alleviate pain on 2 pillows. She is nonweightbearing on her left lower extremity per podiatry recommendations. We will continue to use her rolling knee scooter. Ordered bedside commode and rolling walker to assist with transitions. Continue with SHERI drain management at home. Close follow-up with podiatry. PT evaluated for gait training this morning, stable for discharge home. Podiatry is already sent antibiotics, blood thinners. Recommend scopolamine patch for nausea with travel this afternoon. DIABETES MELLITUS -SSI insulin during admission. Held home metformin given her KAELA. Continue linagliptin, insulin degludec, ertugliflozin. Would recommend repeat BMP in the next week and consider resuming metformin at that time at a renally adjusted dosage. Of note, A1C on 01/04 8.9 HTN HLD PVD PAD -Continue home Norvasc 5mg daily -Continue home aspirin 81mg daily -Continue home atrovastatin 80mg daily -Continue home Bisoprolol 10 mg daily -Continue home Chlorthalidone 25mg daily -Continue home Lisinipril 2.5mg daily Stable for discharge home with follow-up with podiatry. Exam Data for Last 24 hours Vital signs and Labs for Last 24 Hours: Temp Pulse Resp BP Pulse Ox 97.7 F 106 H 22 105/56 L 92 L 01/14/23 08:00 01/14/23 08:00 01/14/23 08:00 01/14/23 08:00 01/14/23 08:00 Laboratory Results - last 24 hr 01/13/23 08:00: Urine Color Yellow, Urine Appearance Clear, Urine pH 5.5, Ur Specific [place] >= 1.030, Urine Protein 2+, Urine Glucose (UA) 2+, Urine Ketones Negative, Urine Blood 3+, Urine Nitrate Negative, Urine Bilirubin Negative, Urine Urobilinogen 0.2, Ur Leukocyte Esterase Negative, Urine RBC 3-5, Urine WBC 3-5, Ur Squamous Epith Cells Occasional, Urine Bacteria Trace, Urine Yeast 4+ 01/13/23 15:12: POC Glucose 210 H 01/13/23 16:28: POC Glucose 250 H 01/13/23 20:43: POC Glucose 276 H 01/13/23 23:44: POC Glucose 230 H 01/14/23 04:58: POC Glucose 143 H 01/14/23 06:24: Sodium 135 L, Potassium 5.3 H D, Chloride 105, Carbon Dioxide 22, Anion Gap 13.3, BUN 51 H, Creatinine 2.10 H, Estimated Creat Clear 33, Estimated GFR 25 L, Est GFR ( Amer) 30 L, Glucose 117 H, Calcium 8.9, Total Bilirubin 0.3, AST 31, ALT 22, Alkaline Phosphatase 40, Total Protein 5.4 L, Albumin 2.6 L, Globulin 2.8, Albumin/Globulin Ratio 0.9 L 01/14/23 09:00: WBC 11.1 H, RBC 3.00 L, Hgb 8.4 L, Hct 25.9 L, MCV 86.3, MCH 28.1, MCHC 32.6, RDW 15.3, Plt Count 259, MPV 8.1, Neut % (Auto) 74.9, Lymph % (Auto) 17.1, Story % (Auto) 5.9, Eos % (Auto) 1.9, Baso % (Auto)
[2023-01-14 11:58] VITALS: BP 111/58; PULSE 103; RESP 18; TEMP 36.8; O2SAT 93
== END 2023-01-14 13:20 | disposition home or self-care (01) ==
LOC: 2ND 06:29
PROVIDERS: Admitting Provider Internal Medicine Adolescent Medicine; PCP Nurse Practitioner Family; Referring Provider Podiatrist; Visit Provider Internal Medicine Adolescent Medicine
PROC: (CPT 27870; principal; 2023-01-13 07:30)
DX: E11.42 Type 2 diabetes mellitus with diabetic polyneuropathy (principal); E11.610 Type 2 diabetes mellitus with diabetic neuropathic arthropathy; E78.5 Hyperlipidemia, unspecified; Y83.1 Surgical operation with implant of artificial internal device as the cause of abnormal reaction of the patient, or of later complication, without mention of misadventure at the time of the procedure; E66.01 Morbid (severe) obesity due to excess calories; Z68.41 Body mass index [BMI] 40.0-44.9, adult; E11.22 Type 2 diabetes mellitus with diabetic chronic kidney disease; N18.9 Chronic kidney disease, unspecified; Z89.422 Acquired absence of other left toe(s); I12.9 Hypertensive chronic kidney disease with stage 1 through stage 4 chronic kidney disease, or unspecified chronic kidney disease; Z79.899 Other long term (current) drug therapy; Z79.4 Long term (current) use of insulin; S82.892G Other fracture of left lower leg, subsequent encounter for closed fracture with delayed healing; S92.14 Dome fracture of talus
CPT/HCPCS: 27870; 28730; 27848; 20680; 20902; 20692; 20702; 36415; 73590; 73600; 73630; 76000; 80048; 80053; 81001; 82962; 84703; 85025; 87081; 87086; 87186; 87635; 87636; 96374; 97163; C1713; C1734; C1762; C1776; C9803; G0378; J1956; J2405; J3370; Q4211; U0003; U0005

== ENCOUNTER → 2023-02-02 19:15 | Outpatient (CLI) | payer MEDICAID, SELFPAY | PROVIDERS: PCP Podiatrist; Visit Provider Podiatrist | DX: M25.572 Pain in left ankle and joints of left foot (principal); S91.002A Unspecified open wound, left ankle, initial encounter | CPT/HCPCS: 87070; 87205 ==

== ENCOUNTER → 2023-02-09 12:58 | Outpatient (CLI) | payer MEDICAID, SELFPAY ==
--- NOTE | 2023-02-09 13:03 | XR_ITS ---
FINAL REPORT CLINICAL HISTORY: left foot/ankle post-op Ex-Fix COMPARISON: 01/13/2023 FINDINGS: LEFT ANKLE SERIES Three views of the left ankle were obtained. There is a fracture of the distal tibia. There are soft tissue calcifications. An external fixator is present, which obscures much of the detail. There are postoperative changes to the foot and ankle. The hardware obscures much of the detail. The bony alignment is grossly stable. IMPRESSION: External fixator obscures much of the detail. No definite change from prior. Reviewed, Interpreted and Dictated by Roc Burkett III, MD Transcribed by Shawna Marroquin Authenticated and [facility]
== END ==
PROVIDERS: PCP Nurse Practitioner Family; Visit Provider Podiatrist
DX: M14.672 Charcot's joint, left ankle and foot (principal); S91.002A Unspecified open wound, left ankle, initial encounter; Z98.890 Other specified postprocedural states
CPT/HCPCS: 73610

== ENCOUNTER → 2023-02-15 10:43 | Outpatient (CLI) | payer MEDICAID, SELFPAY ==
--- NOTE | 2023-02-15 10:54 | XR_ITS ---
FINAL REPORT CLINICAL HISTORY: left foot post-op COMPARISON: 01/13/2023 FINDINGS: LEFT FOOT: Three views of the left foot were obtained. There are postoperative changes from fusion of the ankle and rear foot. Extensive postoperative changes are noted with external fixator in place. Hardware obscures much of the bony detail. No definite change in bony alignment. IMPRESSION: Extensive postoperative changes with external fixator. No definite change in bony alignment. Reviewed, Interpreted and Dictated by Roc Burkett III, MD Transcribed by Yvonne Peters Authenticated and [facility]
--- NOTE | 2023-02-15 10:54 | XR_ITS ---
FINAL REPORT CLINICAL HISTORY: left tibia/fibula post-op, EX-Fix COMPARISON: 01/13/2023 FINDINGS: 4 views of the left tibia/fibula were obtained. Extensive postoperative changes with external fixator in place. Hardware obscures much of the bony detail. There is an oblique fracture of the distal fibula. Bony alignment is stable. No significant callus formation at the fracture site. IMPRESSION: Extensive postoperative changes. Oblique fracture of distal fibula without significant callus formation. Reviewed, Interpreted and Dictated by Roc Burkett III, MD Transcribed by Yvonne Peters Authenticated and [facility]
== END ==
PROVIDERS: PCP Nurse Practitioner Family; Visit Provider Podiatrist
DX: M25.572 Pain in left ankle and joints of left foot (principal); M14.672 Charcot's joint, left ankle and foot; S91.002A Unspecified open wound, left ankle, initial encounter; Z98.890 Other specified postprocedural states
CPT/HCPCS: 73590; 73630

== ENCOUNTER → 2023-03-02 12:40 | Outpatient (CLI) | payer MEDICAID, SELFPAY ==
--- NOTE | 2023-03-02 12:51 | XR_ITS ---
FINAL REPORT CLINICAL HISTORY: post-op Ex-Fix application, sx next week to remove COMPARISON: 02/15/2023 FINDINGS: AP and lateral views of the left tibia and fibula were obtained. The external fixation device is again seen. The hardware obscures the osseous structures. The appearance of the ankle is grossly unchanged since the prior. There is no acute fracture of the left tibia or fibula. The knee and ankle appear intact. There continues to be mild soft tissue edema. IMPRESSION: External fixation device in place. Stable appearance of the ankle. No new abnormality is seen. Reviewed, Interpreted and Dictated by Danika Mays MD Transcribed by Shawna Marroquin Authenticated and [facility]
--- NOTE | 2023-03-02 12:51 | XR_ITS ---
FINAL REPORT CLINICAL HISTORY: Type 2 diabetes mellitus, neuropathy, sx to remove ex-fix next week, medicated for high bp COMPARISON: 01/04/2023 FINDINGS: PA and lateral views of the chest are obtained. The cardiac and mediastinal silhouettes are within normal limits. There are linear opacities at the lung bases that are favored to be atelectasis. The lungs are otherwise clear. There is no pleural effusion, pneumothorax, or acute osseous abnormality. IMPRESSION: Linear atelectasis at the lung bases. Reviewed, Interpreted and Dictated by Danika Mays MD Transcribed by Shawna Marroquin Authenticated and [facility]
[2023-03-02 13:42] LABS: Basophils % 0.8 % (0.1-2.0); Eosinophils # 0.4 K/mm3 (0.0-0.4); Eosinophils % 6.7 % (0.1-12.0); Hematocrit 35.2 % (37.0-47.0); Hemoglobin 11.2 g/dL (12.2-16.2); Lymphocytes # 1.8 K/mm3 (0.7-4.5); Lymphocytes % 31.7 % (10-50); Mean Corpuscular HGB Conc 31.9 g/dL (31.8-35.4); Mean Corpuscular Hemoglobin 27.4 pg (27.0-31.2); Mean Corpuscular Volume 85.9 fl (81-99); Mean Platelet Volume 7.6 fl (7.4-10.4); Monocytes # 0.5 K/mm3 (0.1-1.0); Monocytes % 9.5 % (1.7-9.3); Neutrophils # 2.9 K/mm3 (1.8-7.8); Neutrophils % 51.3 % (37.0-80.0); Platelet Count 289 K/mm3 (142-424); Red Cell Distribution Width 14.7 % (11.5-17.5); White Blood Count 5.6 K/mm3 (4.8-10.8)
[2023-03-02 14:07] LABS: Hemoglobin A1C 7.6 % (4.0-6.0)
[2023-03-02 14:48] LABS: Erythrocyte Sedimentation Rate 74 mm/hr (0-20)
[2023-03-02 14:51] LABS: Alanine Aminotransferase 19 U/L (12-78); Albumin Level 3.7 g/dl (3.5-5.0); Albumin/Globulin Ratio 1.1 (1.1-1.8); Alkaline Phosphatase 137 U/L (38-126); Anion Gap 9.9 mEq/L (5-15); Aspartate Amino Transferase 22 U/L (14-36); Blood Urea Nitrogen 28 mg/dl (7-17); Calcium 9.5 mg/dl (8.4-10.2); Carbon Dioxide 29 mmol/L (22.0-30.0); Chloride 105 mmol/L (98-107); Estimated Glomerular Filt Rate 32 ml/min (>60); GFR (African American) 39 ML/MIN (>60); Globulin 3.4 g/dL (1.3-3.2); Glucose 97 mg/dl (74-100); Potassium 3.9 mmoL/L (3.5-5.1); Sodium 140 mmol/L (136-145); Total Protein,Serum 7.1 g/dl (6.3-8.2)
[2023-03-02 14:52] LABS: Bilirubin,Total 0.1 mg/dl (0.2-1.3)
[2023-03-02 14:57] LABS: C-Reactive Protein 5.5 mg/L (0-4)
== END ==
PROVIDERS: PCP Nurse Practitioner Family; Visit Provider Podiatrist
DX: E11.9 Type 2 diabetes mellitus without complications (principal); M14.672 Charcot's joint, left ankle and foot; S82.892A Other fracture of left lower leg, initial encounter for closed fracture; Z98.890 Other specified postprocedural states; Z79.4 Long term (current) use of insulin
CPT/HCPCS: 36415; 71046; 73590; 80053; 83036; 85025; 85651; 86140

== ENCOUNTER 2023-03-10 09:02 | Day surgery (SDC) | payer MEDICAID, SELFPAY ==
[2023-03-08 12:57] VITALS: BMI 41.5
--- NOTE | 2023-03-10 09:57 | ECG_ITS ---
APPROVED REPORT Exam: Resting ECG HR:60 bpm ECG Measurements Heart Rate 60 AXES ID 168 P 16 QRSd 146 QRS 58 QT 429 T 4 QTc 431 Conclusion SINUS RHYTHM RBBB ABNORMAL ECG UNCONFIRMED REPORT Electronically signed by : José Miguel Alexandre MD 03/10/2023 20:45:52
[2023-03-10 10:02] VITALS: BP 120/84; PULSE 60; RESP 17; TEMP 36.3; O2SAT 96
--- NOTE | 2023-03-10 10:21 | P.PNANES_ITS ---
[facility] Disclaimer: The information contained in this section may have been updated after the patient was seen, as this information can be updated by other users. Medical History Abnormal ankle brachial index (JEAN CLAUDE) Abnormal EKG Cataracts, bilateral CKD (chronic kidney disease) Edema History of amputation of toe History of diabetes mellitus History of kidney disease History of retinal detachment HLD (hyperlipidemia) HTN (hypertension) Ingrown nail of great toe of left foot Left ankle sprain Nonhealing ulcer of left lower extremity Surgical History History of amputation of lesser toe of left foot History of History of foot operation History of skin graft Family History Other Family history of CVA Family history of breast cancer Family history of diabetes mellitus Family history of heart disease Social History Smoking Status: Never smoker second hand exposure: No alcohol intake: never substance use type: denies use current occupational status: unemployed Travel in the last 8 weeks: None adopted: Yes household members: spouse housing: house current occupational exposures/hazards: No caffeine: Yes [facility] Anesthesia Checklist Patient Identification Patient Identification: Arm Band Structural Data Admitted From: Home Planned Operative Procedure/s: Left Ankle External Fixation Device Removal Consent for Planned Operative Procedure(s) Verified: Yes Verified Documents: Surgical Consent and History and Physical NPO Status Verified Time NPO: 00:00 Additional verifications Anesthesia Reactions: No Hx Blood Transfusions: No Blood Transfusion Reaction: No Airway Assessment C-Spine Mobility Assessed: Yes TMJ Mobility Assessed: Yes Dentition: Good Dentition Neurological Assessment Level of Consciousness: Awake and Alert Anesthesia Plan Anesthesia Risk discussed: Yes Anesthesia Plan: Verified ASA Class: III Anesthesia Type: MAC w/Block (Left Popliteal/Adductor Canal nerve block. Risks/benefits explained. Pt verbalizes understanding)
[2023-03-10 10:43] LABS: POC Glucose,Bedside 86 (70-110)
[2023-03-10 10:49] LABS: HCG Qualitative, Serum Negative (Negative)
[2023-03-10 12:25] VITALS: BP 125/75; PULSE 65; RESP 18; TEMP 36.3; O2SAT 94
--- NOTE | 2023-03-10 12:30 | XR_ITS ---
FINAL REPORT CLINICAL HISTORY: Post op ex fix removal FINDINGS: LEFT TIBIA/FIBULA SERIES Two views of the left tibia/fibula were obtained. There is no acute fracture or dislocation. The patient is status post removal of external fixation device. An intramedullary maverick of the distal tibia is noted in place with surgical changes fusion of the ankle joint. There is no soft tissue abnormality. IMPRESSION: Removal of external fixation device. The internal hardware is stable. Reviewed, Interpreted and Dictated by Chaka Bai MD Transcribed by Shawna Marroquin Authenticated and [facility]
--- NOTE | 2023-03-10 12:30 | XR_ITS ---
FINAL REPORT CLINICAL HISTORY: Post op ex fix removal left foot COMPARISON: 02/15/2022 FINDINGS: Three views show interval removal of external fixation device. There are surgical changes from ankle and posterior foot fusion. There is no evidence of acute displaced fracture or dislocation of the visualized bony architecture. There is severe osteopenia. The intact hardware is unremarkable. The joint spaces appear normal. IMPRESSION: Postoperative changes as above. Reviewed, Interpreted and Dictated by Chaka Bai MD Transcribed by Yvonne Peters Authenticated and . [facility]
--- NOTE | 2023-03-10 12:32 | EXP.OP.NOTE ---
Date of procedure: 03/10/23 Pre-op Diagnosis:: Left ex fix S/p left charcot reconstruction TTC AD on 01/13/23 Left ankle open wound x3 Left diabetic foot ulcer Post-op Diagnosis:: Same Procedure performed:: Left external fixation device removal Application of wound graft ([employer]) Application of wound particles ([employer]) Versajet wound debridement Left wound debridement x4 Deep wound cultures Surgeon:: Evelyn Wagner DPM PROMOTIONS EXECUTIVE:: Shane Toth Anesthesia: MAC and regional (L femoral nerve block) Estimated blood loss (mL): 10 Clinical Note:: Patient is a 47 DM female who presents after surgery, 01/13/23: s/p hardware removal, left TTC arthrodesis, ex fix application. Had a post op fall with tibia fx, treated conservatively with immobilization and NWB. Discussed with patient the skin is not healing well at anterior and lateral incision sites. Previous ABIs from 01/04/2023 reviewed and JEAN CLAUDE 1.12 (1.12 to left PT, 0.67 to the DP). I explained the wound has improved some with weekly wound care and debridements. Discussed high risk of wound complications due to the diabetes, PAD, small vessel disease, history of infection, history of trauma, Charcot deformity and chronic kidney disease. Discussed complications of wound not healing including infection, osteomyelitis, and BKA. Discussed risks and benefits of surgery. Including but not limited to: bleeding, infection, nerve and blood vessel damage, need for further surgery, delay in healing of soft tissue or bone, worsening fracture, failure of bones to heal, non-union, mal-union, failure of the implant, prolonged pain and recovery, CRPS/RSD, DVT/PE and anesthetic complications. No guarantees were given. All questions fully answered. The patient verbalized understanding and agreed to proceed with surgery. Written consent was obtained. Operative findings:: Some edema and erythema noted to the proximal medial pin sites x2, improved from last office visit. No purulence, drainge or malodor noted. No drainage from left anterior ankle. Left anterior ankle and lateral incision has some dried black scab/eschar with non-viable yellow fibrotic tissue. Wound cleansed and curette/15' blade, forceps used to sharply excisionally debride wound x4. Next Versajet used to sharply excisionally debride wounds full thickness/ Post: Left ankle anterior wound: thru skin into subq tissue to deep fascia/TA tendon, 100% granular, 7.0 x 7.5 x 0.4cm. Left lateral ankle wound superiorly: thru skin into subq tissue, 100% granular, 4.0 x 2.0 x 0.3cm. Left lateral ankle wound inferiorly: thru skin into subq tissue, 100% granular, 2.0 x 1.5 x 0.2cm. Left plantar heel: thru skin into subq, 100% granular, 1.0 x 0.2 x 0.2cm. Post debridement with Versajet, all wounds had adequate bleeding, no deep signs of infection and wound graft applied. Overall quality of skin is fair due to multiple surgeries, keratosis, lymphedema. In the past has had fair-poor healing potential due to skin quality, diabetic ulcer history, diabetic neuropathy and Charcot. Prognosis is fair. Operative note:: On this date and time patient was deemed an appropriate surgical candidate. With informed consent signed, the patient was taken to the operating theater after regional nerve block performed by anesthesia. The patient was positioned supine. MAC anesthesia was induced. No tourniquet used. IV vancomycin, cefepime given. Left lower extremity prepped and draped with Betadine. Left removal of external fixation device: Skin cleansed with Betadine. Edema and minimal erythema noted to the proximal 2 pin sites. No drainage noted from pin sites. No gumaro purulence, no malodor, no ascending cellulitis. A wrench was used to unscrew the frame. The frame was removed in total. All of the pins were removed without complication. Next a curette was used to curette and debride the pin sites. Fibrotic tissue and biofilm was removed. No purulence or signs of infection noted to foot
[2023-03-10 12:35] VITALS: BP 122/65; PULSE 67; RESP 18; O2SAT 96
[2023-03-10 12:45] VITALS: BP 139/73; PULSE 68; RESP 18; O2SAT 95
[2023-03-10 13:07] VITALS: BP 135/81; PULSE 75; RESP 18; O2SAT 95
== END 2023-03-10 13:10 | disposition home or self-care (01) ==
PROVIDERS: PCP Nurse Practitioner Family; Visit Provider Podiatrist
PROC: (CPT 20680; principal; 2023-03-10 10:30)
DX: T84.69XA Infection and inflammatory reaction due to internal fixation device of other site, initial encounter (principal); S91.002A Unspecified open wound, left ankle, initial encounter; M14.672 Charcot's joint, left ankle and foot; Z79.899 Other long term (current) drug therapy; I10 Essential (primary) hypertension; E11.9 Type 2 diabetes mellitus without complications; Z79.4 Long term (current) use of insulin
CPT/HCPCS: 20680; 11042; 11045; 73590; 73630; 82962; 84703; 87070; 87077; 87186; 87205; 93005; 96374; J0692; J3370; Q4100

== ENCOUNTER → 2023-03-23 22:04 | Outpatient (CLI) | payer MEDICAID, SELFPAY | PROVIDERS: PCP Podiatrist; Visit Provider Podiatrist | DX: Z98.890 Other specified postprocedural states (principal); B96.5 Pseudomonas (aeruginosa) (mallei) (pseudomallei) as the cause of diseases classified elsewhere | CPT/HCPCS: 87070; 87077; 87186; 87205 ==

== ENCOUNTER → 2023-03-29 11:22 | Outpatient (CLI) | payer MEDICAID, SELFPAY ==
--- NOTE | 2023-03-29 11:32 | XR_ITS ---
FINAL REPORT CLINICAL HISTORY: postop FINDINGS: LEFT TIBIA AND FIBULA AP and lateral views were obtained. There is fusion of the ankle with intramedullary mavercik and multiple screws in place. There is erosion versus postoperative change of the plantar midfoot. There is no acute fracture or dislocation. Diffuse degenerative changes are seen. A splint obscures some detail. IMPRESSION: Postoperative changes without acute bony abnormality. Reviewed, Interpreted and Dictated by Roc Burkett III, MD Transcribed by Kezia Brito Authenticated and [facility]
--- NOTE | 2023-03-29 11:32 | XR_ITS ---
FINAL REPORT CLINICAL HISTORY: left foot post-op FINDINGS: LEFT FOOT Three views of the left foot were obtained. Overlying splint obscures bony detail. There are postoperative changes of fusion of the ankle and rear foot. An intramedullary maverick is seen with multiple screws. K wires are in place. Postoperative changes versus erosion is seen of the forefoot. The visualized joint spaces are normally aligned. IMPRESSION: Postoperative changes without acute bony abnormality. Reviewed, Interpreted and Dictated by Roc Burkett III, MD Transcribed by Kezia Brito Authenticated and [facility]
== END ==
PROVIDERS: PCP Nurse Practitioner Family; Visit Provider Nurse Practitioner Family
DX: M79.672 Pain in left foot (principal); M14.672 Charcot's joint, left ankle and foot; Z98.890 Other specified postprocedural states
CPT/HCPCS: 73590; 73630

== ENCOUNTER → 2023-04-13 09:30 | Outpatient (CLI) | payer MEDICAID, SELFPAY ==
[2023-04-13 10:12] VITALS: BMI 42.8
[2023-04-13 11:07] LABS: Basophils # 0.1 K/mm3 (0-0.2); Basophils % 0.8 % (0.1-2.0); Eosinophils # 0.5 K/mm3 (0.0-0.4); Eosinophils % 5.9 % (0.1-12.0); Hematocrit 35.7 % (37.0-47.0); Hemoglobin 11.8 g/dL (12.2-16.2); Lymphocytes % 36.2 % (10-50); Mean Corpuscular HGB Conc 33.2 g/dL (31.8-35.4); Mean Corpuscular Volume 84.4 fl (81-99); Mean Platelet Volume 7.9 fl (7.4-10.4); Monocytes # 0.7 K/mm3 (0.1-1.0); Neutrophils # 4.1 K/mm3 (1.8-7.8); Neutrophils % 49.1 % (37.0-80.0); Platelet Count 240 K/mm3 (142-424); Red Blood Count 4.23 M/mm3 (4.20-5.40); Red Cell Distribution Width 14.8 % (11.5-17.5); White Blood Count 8.4 K/mm3 (4.8-10.8)
[2023-04-13 11:15] LABS: Alanine Aminotransferase 19 U/L (12-78); Albumin Level 3.5 g/dl (3.5-5.0); Albumin/Globulin Ratio 0.9 (1.1-1.8); Alkaline Phosphatase 101 U/L (38-126); Anion Gap 10.8 mEq/L (5-15); Aspartate Amino Transferase 23 U/L (14-36); Bilirubin,Total 0.2 mg/dl (0.2-1.3); Blood Urea Nitrogen 28 mg/dl (7-17); Calcium 9.6 mg/dl (8.4-10.2); Carbon Dioxide 29 mmol/L (22.0-30.0); Chloride 104 mmol/L (98-107); Creatinine Clearance Estimated 42 mL/min (50-200); Estimated Glomerular Filt Rate 32 ml/min (>60); GFR (African American) 39 ML/MIN (>60); Globulin 3.9 g/dL (1.3-3.2); Glucose 101 mg/dl (74-100); Potassium 3.8 mmoL/L (3.5-5.1); Sodium 140 mmol/L (136-145); Total Protein,Serum 7.4 g/dl (6.3-8.2)
[2023-04-13 11:21] LABS: C-Reactive Protein 3.6 mg/L (0-4)
[2023-04-13 11:53] LABS: Erythrocyte Sedimentation Rate 74 mm/hr (0-20)
[2023-04-13 13:10] VITALS: BP 136/70; PULSE 64; RESP 20; TEMP 36.9; O2SAT 95
[2023-04-13 13:40] VITALS: BP 115/70; PULSE 65; RESP 20; O2SAT 95
== END ==
PROVIDERS: PCP Nurse Practitioner Family; Visit Provider Nurse Practitioner Family
DX: Z98.890 Other specified postprocedural states (principal); S91.002A Unspecified open wound, left ankle, initial encounter; A49.8 Other bacterial infections of unspecified site; Z45.2 Encounter for adjustment and management of vascular access device
CPT/HCPCS: 36410; 36569; 71045; 80053; 85025; 85651; 86140; 96365; C1751; J0692

== ENCOUNTER 2023-04-20 10:45 | Outpatient (CLI) | payer MEDICAID, SELFPAY ==
[2023-04-20 10:52] VITALS: BMI 42.8
[2023-04-20 11:07] LABS: Basophils # 0.1 K/mm3 (0-0.2); Basophils % 1.1 % (0.1-2.0); Eosinophils # 0.5 K/mm3 (0.0-0.4); Eosinophils % 6.7 % (0.1-12.0); Hematocrit 37.8 % (37.0-47.0); Hemoglobin 12.4 g/dL (12.2-16.2); Lymphocytes # 2.9 K/mm3 (0.7-4.5); Lymphocytes % 38.2 % (10-50); Mean Corpuscular HGB Conc 32.7 g/dL (31.8-35.4); Mean Corpuscular Hemoglobin 27.5 pg (27.0-31.2); Mean Corpuscular Volume 84.2 fl (81-99); Mean Platelet Volume 7.9 fl (7.4-10.4); Monocytes # 0.5 K/mm3 (0.1-1.0); Monocytes % 6.5 % (1.7-9.3); Neutrophils # 3.6 K/mm3 (1.8-7.8); Neutrophils % 47.5 % (37.0-80.0); Platelet Count 274 K/mm3 (142-424); Red Blood Count 4.49 M/mm3 (4.20-5.40); Red Cell Distribution Width 14.8 % (11.5-17.5); White Blood Count 7.6 K/mm3 (4.8-10.8)
[2023-04-20 11:15] LABS: Alanine Aminotransferase 21 U/L (12-78); Albumin Level 3.7 g/dl (3.5-5.0); Albumin/Globulin Ratio 0.9 (1.1-1.8); Alkaline Phosphatase 107 U/L (38-126); Anion Gap 11.2 mEq/L (5-15); Aspartate Amino Transferase 23 U/L (14-36); Bilirubin,Total 0.2 mg/dl (0.2-1.3); Blood Urea Nitrogen 36 mg/dl (7-17); Calcium 9.7 mg/dl (8.4-10.2); Carbon Dioxide 28 mmol/L (22.0-30.0); Chloride 103 mmol/L (98-107); Creatinine Clearance Estimated 45 mL/min (50-200); Estimated Glomerular Filt Rate 34 ml/min (>60); GFR (African American) 42 ML/MIN (>60); Globulin 4.3 g/dL (1.3-3.2); Glucose 175 mg/dl (74-100); Potassium 4.2 mmoL/L (3.5-5.1); Sodium 138 mmol/L (136-145)
[2023-04-20 11:21] LABS: C-Reactive Protein 1.2 mg/L (0-4)
[2023-04-20 11:45] LABS: Erythrocyte Sedimentation Rate 41 mm/hr (0-20)
== END 2023-04-20 11:15 | disposition home or self-care (01) ==
LOC: INF 10:46
PROVIDERS: Nurse Practitioner Family; PCP Nurse Practitioner Family; Visit Provider Podiatrist
DX: E11.621 Type 2 diabetes mellitus with foot ulcer (principal); T81.49XA Infection following a procedure, other surgical site, initial encounter; L97.322 Non-pressure chronic ulcer of left ankle with fat layer exposed; Z79.4 Long term (current) use of insulin
CPT/HCPCS: 36592; 80053; 85025; 85651; 86140

== ENCOUNTER 2023-04-27 12:21 | Outpatient (CLI) | payer MEDICAID, SELFPAY ==
[2023-04-27 12:24] VITALS: BMI 42.8
[2023-04-27 12:44] LABS: Basophils # 0.1 K/mm3 (0-0.2); Basophils % 1.2 % (0.1-2.0); Eosinophils # 0.5 K/mm3 (0.0-0.4); Eosinophils % 6.1 % (0.1-12.0); Hematocrit 39.9 % (37.0-47.0); Hemoglobin 12.8 g/dL (12.2-16.2); Lymphocytes # 2.5 K/mm3 (0.7-4.5); Lymphocytes % 34.2 % (10-50); Mean Corpuscular Hemoglobin 27.4 pg (27.0-31.2); Mean Corpuscular Volume 85.5 fl (81-99); Mean Platelet Volume 7.6 fl (7.4-10.4); Monocytes # 0.5 K/mm3 (0.1-1.0); Monocytes % 7.2 % (1.7-9.3); Neutrophils # 3.8 K/mm3 (1.8-7.8); Neutrophils % 51.3 % (37.0-80.0); Platelet Count 289 K/mm3 (142-424); Red Blood Count 4.67 M/mm3 (4.20-5.40); White Blood Count 7.4 K/mm3 (4.8-10.8)
[2023-04-27 12:55] LABS: Alanine Aminotransferase 21 U/L (12-78); Albumin Level 3.7 g/dl (3.5-5.0); Albumin/Globulin Ratio 0.9 (1.1-1.8); Alkaline Phosphatase 115 U/L (38-126); Anion Gap 13.2 mEq/L (5-15); Aspartate Amino Transferase 25 U/L (14-36); Bilirubin,Total 0.2 mg/dl (0.2-1.3); Blood Urea Nitrogen 37 mg/dl (7-17); Carbon Dioxide 29 mmol/L (22.0-30.0); Chloride 104 mmol/L (98-107); Creatinine Clearance Estimated 42 mL/min (50-200); Estimated Glomerular Filt Rate 32 ml/min (>60); GFR (African American) 39 ML/MIN (>60); Glucose 179 mg/dl (74-100); Potassium 4.2 mmoL/L (3.5-5.1); Sodium 142 mmol/L (136-145); Total Protein,Serum 7.7 g/dl (6.3-8.2)
[2023-04-27 13:17] LABS: Erythrocyte Sedimentation Rate 53 mm/hr (0-20)
== END 2023-04-27 12:39 | disposition home or self-care (01) ==
LOC: INF 12:21
PROVIDERS: PCP Nurse Practitioner Family; Visit Provider Nurse Practitioner Family
DX: E11.621 Type 2 diabetes mellitus with foot ulcer (principal); T81.49XA Infection following a procedure, other surgical site, initial encounter; L97.322 Non-pressure chronic ulcer of left ankle with fat layer exposed; Z79.4 Long term (current) use of insulin; Z45.2 Encounter for adjustment and management of vascular access device
CPT/HCPCS: 36592; 80053; 85025; 85651; 86140

== ENCOUNTER 2023-05-04 10:30 | Outpatient (CLI) | payer MEDICAID, SELFPAY ==
[2023-05-04 10:33] VITALS: BMI 42.8
[2023-05-04 10:52] LABS: Basophils # 0.1 K/mm3 (0-0.2); Basophils % 1.5 % (0.1-2.0); Eosinophils # 0.4 K/mm3 (0.0-0.4); Eosinophils % 5.7 % (0.1-12.0); Hematocrit 39.8 % (37.0-47.0); Hemoglobin 12.5 g/dL (12.2-16.2); Lymphocytes # 2.6 K/mm3 (0.7-4.5); Lymphocytes % 35.9 % (10-50); Mean Corpuscular HGB Conc 31.4 g/dL (31.8-35.4); Mean Corpuscular Hemoglobin 26.6 pg (27.0-31.2); Mean Corpuscular Volume 84.6 fl (81-99); Mean Platelet Volume 7.8 fl (7.4-10.4); Monocytes # 0.5 K/mm3 (0.1-1.0); Monocytes % 6.9 % (1.7-9.3); Neutrophils # 3.7 K/mm3 (1.8-7.8); Neutrophils % 49.9 % (37.0-80.0); Platelet Count 287 K/mm3 (142-424); Red Cell Distribution Width 15.1 % (11.5-17.5); White Blood Count 7.3 K/mm3 (4.8-10.8)
[2023-05-04 10:54] LABS: Chloride 105 mmol/L (98-107); Sodium 140 mmol/L (136-145)
[2023-05-04 10:55] LABS: Potassium 4.3 mmoL/L (3.5-5.1)
[2023-05-04 10:57] LABS: Alanine Aminotransferase 24 U/L (12-78); Albumin Level 3.5 g/dl (3.5-5.0); Albumin/Globulin Ratio 0.9 (1.1-1.8); Alkaline Phosphatase 108 U/L (38-126); Anion Gap 10.3 mEq/L (5-15); Aspartate Amino Transferase 24 U/L (14-36); Bilirubin,Total 0.3 mg/dl (0.2-1.3); Blood Urea Nitrogen 40 mg/dl (7-17); Calcium 9.3 mg/dl (8.4-10.2); Carbon Dioxide 29 mmol/L (22.0-30.0); Creatinine Clearance Estimated 45 mL/min (50-200); Estimated Glomerular Filt Rate 34 ml/min (>60); GFR (African American) 42 ML/MIN (>60); Globulin 3.7 g/dL (1.3-3.2); Glucose 136 mg/dl (74-100); Total Protein,Serum 7.2 g/dl (6.3-8.2)
[2023-05-04 11:34] LABS: Erythrocyte Sedimentation Rate 111 mm/hr (0-20)
[2023-05-05 12:48] LABS: C-Reactive Protein 0.7 mg/L (0-4)
== END 2023-05-04 10:50 | disposition home or self-care (01) ==
LOC: INF 10:30
PROVIDERS: PCP Nurse Practitioner Family; Visit Provider Nurse Practitioner Family
DX: S91.002A Unspecified open wound, left ankle, initial encounter (principal); B96.5 Pseudomonas (aeruginosa) (mallei) (pseudomallei) as the cause of diseases classified elsewhere; Z98.890 Other specified postprocedural states; Z45.2 Encounter for adjustment and management of vascular access device
CPT/HCPCS: 36592; 80053; 85025; 85651; 86140

== ENCOUNTER 2023-05-11 10:27 | Outpatient (CLI) | payer MEDICAID, SELFPAY ==
--- NOTE | 2023-05-11 10:27 | CT_ITS ---
FINAL REPORT TECHNIQUE: Thin section axial images were obtained through the lower extremity without contrast. Reconstruction images were obtained from the axial data. Exam was performed using dose reduction technique. CLINICAL HISTORY: Status post lt ankle surgery COMPARISON: None FINDINGS: There is postoperative change from a tibial talocalcaneal fusion. There is a fracture line along the posterior tibial cortex at the level of the proximal portion of the longitudinally oriented maverick, age-indeterminate. There is incomplete bony fusion of the tibiotalar joint. The bones of the hind foot and mid foot are mottled and osteopenic in appearance. There is calcaneocuboid dislocation, of uncertain chronicity. There is significant soft tissue edema, with abnormal soft tissue between the bones of the midfoot. Chronic osteomyelitis cannot be excluded. No gross fluid collections are identified. IMPRESSION: Postoperative changes from tibiotalar calcaneal fusion as described. There is a fracture line along the posterior tibial cortex as described, age-indeterminate. There is calcaneocuboid dislocation, of uncertain chronicity. There is significant soft tissue edema, and chronic osteomyelitis cannot be excluded. No gross fluid collections are identified. Reviewed, Interpreted and Dictated by Danika Mays MD Transcribed by Shahla Sanchez Authenticated and [facility]
[2023-05-11 10:57] VITALS: BMI 42.8
[2023-05-11 11:10] LABS: MANUAL DIFFERENTIAL MANUAL DIFFERENTIAL (MANUAL DIFF)
[2023-05-11 11:14] LABS: Basophils # 0.1 K/mm3 (0-0.2); Basophils % 1.5 % (0.1-2.0); Eosinophils # 0.5 K/mm3 (0.0-0.4); Hematocrit 41.1 % (37.0-47.0); Hemoglobin 12.6 g/dL (12.2-16.2); Lymphocytes # 2.9 K/mm3 (0.7-4.5); Lymphocytes % 38.4 % (10-50); Mean Corpuscular HGB Conc 30.6 g/dL (31.8-35.4); Mean Platelet Volume 7.8 fl (7.4-10.4); Monocytes # 0.5 K/mm3 (0.1-1.0); Monocytes % 6.9 % (1.7-9.3); Neutrophils # 3.5 K/mm3 (1.8-7.8); Neutrophils % 47.2 % (37.0-80.0); Platelet Count 267 K/mm3 (142-424); Red Blood Count 4.83 M/mm3 (4.20-5.40); Red Cell Distribution Width 15.1 % (11.5-17.5); White Blood Count 7.4 K/mm3 (4.8-10.8)
[2023-05-11 11:25] LABS: Alanine Aminotransferase 25 U/L (12-78); Albumin Level 3.7 g/dl (3.5-5.0); Alkaline Phosphatase 108 U/L (38-126); Anion Gap 12.6 mEq/L (5-15); Aspartate Amino Transferase 24 U/L (14-36); Bilirubin,Total 0.2 mg/dl (0.2-1.3); Blood Urea Nitrogen 48 mg/dl (7-17); Calcium 9.9 mg/dl (8.4-10.2); Carbon Dioxide 28 mmol/L (22.0-30.0); Chloride 105 mmol/L (98-107); Creatinine Clearance Estimated 48 mL/min (50-200); Estimated Glomerular Filt Rate 37 ml/min (>60); GFR (African American) 45 ML/MIN (>60); Globulin 3.8 g/dL (1.3-3.2); Glucose 215 mg/dl (74-100); Potassium 4.6 mmoL/L (3.5-5.1); Sodium 141 mmol/L (136-145); Total Protein,Serum 7.5 g/dl (6.3-8.2)
[2023-05-11 12:18] LABS: Erythrocyte Sedimentation Rate 69 mm/hr (0-20)
[2023-05-11 12:39] LABS: Eosinophils % 1 % (0-3); Hypochromasia 1+; Lymphocytes % 55 % (10-50); Monocytes % 4 % (2-9); Neutrophils % 40 % (42-76); Total Cells Counted 100
[2023-05-11 12:40] LABS: Platelet Estimate Normal
[2023-05-12 08:47] LABS: C-Reactive Protein 0.5 mg/L (0-4)
== END 2023-05-11 11:10 | disposition home or self-care (01) ==
PROVIDERS: Nurse Practitioner Family; PCP Nurse Practitioner Family; Visit Provider Podiatrist
DX: M25.572 Pain in left ankle and joints of left foot (principal); M96.0 Pseudarthrosis after fusion or arthrodesis; Z98.890 Other specified postprocedural states
CPT/HCPCS: 36592; 73700; 80053; 85007; 85014; 85018; 85048; 85049; 85651; 86140; 96523

== ENCOUNTER 2023-05-18 12:18 | Outpatient (CLI) | payer MEDICAID, SELFPAY ==
[2023-05-18 12:22] VITALS: BMI 42.8
[2023-05-18 12:55] LABS: Basophils # 0.1 K/mm3 (0-0.2); Basophils % 1.3 % (0.1-2.0); Eosinophils # 0.4 K/mm3 (0.0-0.4); Eosinophils % 6.1 % (0.1-12.0); Hematocrit 40.7 % (37.0-47.0); Hemoglobin 12.9 g/dL (12.2-16.2); Lymphocytes # 2.8 K/mm3 (0.7-4.5); Lymphocytes % 39.4 % (10-50); Mean Corpuscular HGB Conc 31.7 g/dL (31.8-35.4); Mean Corpuscular Hemoglobin 27.1 pg (27.0-31.2); Mean Corpuscular Volume 85.3 fl (81-99); Mean Platelet Volume 7.9 fl (7.4-10.4); Monocytes # 0.5 K/mm3 (0.1-1.0); Monocytes % 7.4 % (1.7-9.3); Neutrophils # 3.3 K/mm3 (1.8-7.8); Neutrophils % 45.8 % (37.0-80.0); Platelet Count 263 K/mm3 (142-424); Red Blood Count 4.78 M/mm3 (4.20-5.40); Red Cell Distribution Width 15.3 % (11.5-17.5); White Blood Count 7.1 K/mm3 (4.8-10.8)
[2023-05-18 13:05] LABS: Alanine Aminotransferase 26 U/L (12-78); Albumin Level 3.8 g/dl (3.5-5.0); Alkaline Phosphatase 81 U/L (38-126); Anion Gap 10.4 mEq/L (5-15); Aspartate Amino Transferase 26 U/L (14-36); Bilirubin,Total 0.2 mg/dl (0.2-1.3); Blood Urea Nitrogen 44 mg/dl (7-17); Calcium 9.8 mg/dl (8.4-10.2); Carbon Dioxide 33 mmol/L (22.0-30.0); Chloride 101 mmol/L (98-107); Creatinine Clearance Estimated 42 mL/min (50-200); Estimated Glomerular Filt Rate 32 ml/min (>60); GFR (African American) 39 ML/MIN (>60); Globulin 3.7 g/dL (1.3-3.2); Glucose 193 mg/dl (74-100); Potassium 4.4 mmoL/L (3.5-5.1); Sodium 140 mmol/L (136-145); Total Protein,Serum 7.5 g/dl (6.3-8.2)
[2023-05-18 13:34] LABS: Erythrocyte Sedimentation Rate 30 mm/hr (0-20)
[2023-05-22 10:01] LABS: C-Reactive Protein 0.4 mg/L (0-4)
== END 2023-05-18 12:40 | disposition home or self-care (01) ==
LOC: INF 12:18
PROVIDERS: PCP Nurse Practitioner Family; Visit Provider Nurse Practitioner Family
DX: M79.672 Pain in left foot (principal); M14.672 Charcot's joint, left ankle and foot; M96.0 Pseudarthrosis after fusion or arthrodesis; A49.8 Other bacterial infections of unspecified site; Z51.89 Encounter for other specified aftercare; Z45.2 Encounter for adjustment and management of vascular access device
CPT/HCPCS: 36592; 80053; 85025; 85651; 86140; 96523

== ENCOUNTER → 2023-05-25 12:00 | Outpatient (CLI) | payer MEDICAID, SELFPAY | PROVIDERS: PCP Nurse Practitioner Family; Visit Provider Podiatrist | DX: S91.002A Unspecified open wound, left ankle, initial encounter (principal) | CPT/HCPCS: 87070; 87205 ==

== ENCOUNTER 2023-05-25 12:25 | Outpatient (CLI) | payer MEDICAID, SELFPAY ==
[2023-05-25 12:30] VITALS: BMI 42.8
[2023-05-25 12:57] LABS: Basophils # 0.1 K/mm3 (0-0.2); Basophils % 1.3 % (0.1-2.0); Eosinophils # 0.5 K/mm3 (0.0-0.4); Eosinophils % 7.1 % (0.1-12.0); Hematocrit 38.7 % (37.0-47.0); Hemoglobin 13.2 g/dL (12.2-16.2); Lymphocytes # 2.6 K/mm3 (0.7-4.5); Lymphocytes % 34.7 % (10-50); Mean Corpuscular HGB Conc 34.3 g/dL (31.8-35.4); Mean Corpuscular Hemoglobin 29.1 pg (27.0-31.2); Mean Corpuscular Volume 84.8 fl (81-99); Mean Platelet Volume 7.8 fl (7.4-10.4); Monocytes # 0.5 K/mm3 (0.1-1.0); Monocytes % 6.4 % (1.7-9.3); Neutrophils # 3.8 K/mm3 (1.8-7.8); Neutrophils % 50.4 % (37.0-80.0); Platelet Count 236 K/mm3 (142-424); Red Blood Count 4.56 M/mm3 (4.20-5.40); Red Cell Distribution Width 15.4 % (11.5-17.5); White Blood Count 7.5 K/mm3 (4.8-10.8)
[2023-05-25 12:59] LABS: Chloride 101 mmol/L (98-107); Potassium 4.1 mmoL/L (3.5-5.1); Sodium 138 mmol/L (136-145)
[2023-05-25 13:01] LABS: Alanine Aminotransferase 25 U/L (12-78); Aspartate Amino Transferase 24 U/L (14-36); Blood Urea Nitrogen 35 mg/dl (7-17); Creatinine Clearance Estimated 40 mL/min (50-200); Estimated Glomerular Filt Rate 30 ml/min (>60); GFR (African American) 36 ML/MIN (>60)
[2023-05-25 13:02] LABS: Albumin Level 3.7 g/dl (3.5-5.0); Alkaline Phosphatase 87 U/L (38-126); Anion Gap 11.1 mEq/L (5-15); Bilirubin,Total 0.3 mg/dl (0.2-1.3); Calcium 9.4 mg/dl (8.4-10.2); Carbon Dioxide 30 mmol/L (22.0-30.0); Globulin 3.7 g/dL (1.3-3.2); Glucose 167 mg/dl (74-100); Total Protein,Serum 7.4 g/dl (6.3-8.2)
[2023-05-25 13:31] LABS: Erythrocyte Sedimentation Rate 54 mm/hr (0-20)
[2023-05-27 09:12] LABS: C-Reactive Protein 0.9 mg/L (0-4)
== END 2023-05-25 12:58 | disposition home or self-care (01) ==
LOC: INF 12:25
PROVIDERS: PCP Nurse Practitioner Family; Visit Provider Nurse Practitioner Family
DX: S91.002A Unspecified open wound, left ankle, initial encounter (principal); A49.8 Other bacterial infections of unspecified site; Z98.890 Other specified postprocedural states; Z45.2 Encounter for adjustment and management of vascular access device
CPT/HCPCS: 36592; 80053; 85025; 85651; 86140; 96523

== ENCOUNTER 2023-06-01 12:30 | Outpatient (CLI) | payer MEDICAID, SELFPAY ==
[2023-06-01 12:37] VITALS: BMI 42.8
[2023-06-01 12:57] VITALS: BP 134/73; PULSE 62; RESP 20; TEMP 36.5; O2SAT 96
[2023-06-01 13:03] LABS: Basophils # 0.1 K/mm3 (0-0.2); Basophils % 1.1 % (0.1-2.0); Eosinophils # 0.4 K/mm3 (0.0-0.4); Eosinophils % 6.2 % (0.1-12.0); Hematocrit 39.1 % (37.0-47.0); Hemoglobin 13.2 g/dL (12.2-16.2); Lymphocytes # 2.8 K/mm3 (0.7-4.5); Mean Corpuscular HGB Conc 33.8 g/dL (31.8-35.4); Mean Corpuscular Hemoglobin 29.1 pg (27.0-31.2); Mean Corpuscular Volume 85.9 fl (81-99); Mean Platelet Volume 7.7 fl (7.4-10.4); Monocytes # 0.4 K/mm3 (0.1-1.0); Monocytes % 5.7 % (1.7-9.3); Neutrophils # 3.1 K/mm3 (1.8-7.8); Neutrophils % 45.9 % (37.0-80.0); Platelet Count 242 K/mm3 (142-424); Red Blood Count 4.55 M/mm3 (4.20-5.40); Red Cell Distribution Width 15.6 % (11.5-17.5); White Blood Count 6.7 K/mm3 (4.8-10.8)
[2023-06-01 13:12] LABS: Chloride 102 mmol/L (98-107); Potassium 4.2 mmoL/L (3.5-5.1); Sodium 138 mmol/L (136-145)
[2023-06-01 13:15] LABS: Alanine Aminotransferase 26 U/L (12-78); Albumin Level 3.6 g/dl (3.5-5.0); Albumin/Globulin Ratio 1.1 (1.1-1.8); Alkaline Phosphatase 104 U/L (38-126); Anion Gap 12.2 mEq/L (5-15); Aspartate Amino Transferase 27 U/L (14-36); Bilirubin,Total 0.2 mg/dl (0.2-1.3); Blood Urea Nitrogen 39 mg/dl (7-17); Calcium 9.5 mg/dl (8.4-10.2); Carbon Dioxide 28 mmol/L (22.0-30.0); Creatinine Clearance Estimated 40 mL/min (50-200); Estimated Glomerular Filt Rate 30 ml/min (>60); GFR (African American) 36 ML/MIN (>60); Globulin 3.4 g/dL (1.3-3.2); Glucose 280 mg/dl (74-100)
[2023-06-01 13:40] VITALS: BP 129/72; PULSE 66; RESP 20; O2SAT 97
[2023-06-01 13:43] LABS: C-Reactive Protein 1.3 mg/L (0-4)
[2023-06-01 13:46] LABS: Erythrocyte Sedimentation Rate 22 mm/hr (0-20)
[2023-06-01 16:10] LABS: Hemoglobin A1C 9.4 % (4.0-6.0)
== END 2023-06-01 13:45 | disposition home or self-care (01) ==
LOC: INF 12:32
PROVIDERS: Podiatrist; PCP Nurse Practitioner Family; Visit Provider Nurse Practitioner Family
DX: S91.002A Unspecified open wound, left ankle, initial encounter (principal); Z45.2 Encounter for adjustment and management of vascular access device; Z79.899 Other long term (current) drug therapy
CPT/HCPCS: 36592; 80053; 83036; 85025; 85651; 86140; 96365; G0463; J0692

== ENCOUNTER → 2023-06-29 12:11 | Outpatient (CLI) | payer MEDICAID, SELFPAY ==
--- NOTE | 2023-06-29 12:43 | XR_ITS ---
FINAL REPORT CLINICAL HISTORY: post-op wound COMPARISON: 03/29/2023 FINDINGS: LEFT FOOT The patient is postop from fusion of the distal tibia, talus, and calcaneus with an IM maverick in the distal tibia extending into the calcaneus and several screws present. There is osteopenia present. There is marked degeneration of the talus and near complete collapse. There is marked fragmentation and disorganization of the intertarsal joints, likely neuropathic in origin. There is proximal soft tissue swelling in the dorsal aspect of the foot measuring 23 mm in depth. IMPRESSION: Postoperative changes stable since the prior exam of March. Proximal soft tissue swelling in the dorsal aspect of the foot measuring 23 mm in depth. Reviewed, Interpreted and Dictated by Teddy Choudhury MD Transcribed by Shahla Sanchez Authenticated and [facility]
--- NOTE | 2023-06-29 12:43 | XR_ITS ---
FINAL REPORT CLINICAL HISTORY: post-op wound COMPARISON: 03/29/2023 FINDINGS: There is an intramedullary maverick present in the distal tibia with a subtalar fusion, and near complete collapse of the talus. There is an oblique lucency on the superior aspect of the posterior cortex of the distal tibia at the tip of the IM maverick proximally, that was also noted on the previous film of March and appears stable. Diffuse soft tissue swelling remains present. No radiopaque foreign body is identified on this examination. IMPRESSION: Intramedullary maverick present in the distal tibia with a subtalar fusion as described, not significantly changed since the previous film of March 2023. Reviewed, Interpreted and Dictated by Teddy Choudhury MD Transcribed by Shahla Sanchez Authenticated and [facility]
--- NOTE | 2023-06-29 12:43 | XR_ITS ---
FINAL REPORT CLINICAL HISTORY: Post Op Wound COMPARISON: 03/29/2023 FINDINGS: LEFT ANKLE This patient has undergone a previous subtalar fusion extending into the calcaneus, with an intramedullary maverick and multiple screws present. The overall appearance of the hardware is stable since the prior exam. There is marked osteopenia present, and marked soft tissue edema measuring up to 4 cm in depth. There is fragmentation and disorganization of the intertarsal foot, likely neuropathic. IMPRESSION: Postsurgical changes remains present and stable since the prior films. There is marked soft tissue edema measuring up to 4 cm in depth. Reviewed, Interpreted and Dictated by Teddy Choudhury MD Transcribed by Shahla Sanchez Authenticated and [facility]
== END ==
PROVIDERS: PCP Nurse Practitioner Family; Visit Provider Podiatrist
DX: S91.002A Unspecified open wound, left ankle, initial encounter (principal)
CPT/HCPCS: 73590; 73610; 73630

== ENCOUNTER 2023-08-18 10:30 | Outpatient (CLI) | payer MEDICAID, SELFPAY ==
--- NOTE | 2023-08-18 10:34 | XR_ITS ---
FINAL REPORT CLINICAL HISTORY: Post op wound left tibia/fibula COMPARISON: 06/29/2023 FINDINGS: 2 views of the left tibia/fibula were obtained. There are postoperative changes from fusion at the tibiotalar joint and talocalcaneal joint. There is a maverick with multiple screws and a pin through the rear foot and midfoot. There is no acute fracture or dislocation. Bony alignment is stable. The joint spaces are intact. There is soft tissue swelling. IMPRESSION: Postoperative changes and soft tissue swelling without acute bony abnormality. Reviewed, Interpreted and Dictated by Roc Burkett III, MD Transcribed by Yvonne Peters Authenticated and [facility]
--- NOTE | 2023-08-30 15:41 | PC.NURSE ---
Accessed pt chart to complete ortho paper
== END 2023-08-18 23:59 ==
PROVIDERS: PCP Nurse Practitioner Family; Visit Provider Podiatrist
DX: M14.672 Charcot's joint, left ankle and foot; S91.002A Unspecified open wound, left ankle, initial encounter; Z51.89 Encounter for other specified aftercare
CPT/HCPCS: 73590; 87070; 87205

== ENCOUNTER 2023-09-21 12:03 | Outpatient (CLI) | payer MEDICAID, SELFPAY ==
--- NOTE | 2023-09-21 12:14 | XR_ITS ---
FINAL REPORT CLINICAL HISTORY: Charcot foot FINDINGS: LEFT ANKLE: Three views of the left ankle were obtained. There are postoperative changes from fusion of the ankle and rear foot. An intramedullary maverick extends from the distal tibia through the talus and anterior calcaneus. There is screws present at the calcaneus and talus. A wire is seen laterally. Soft tissue swelling is noted. There is no acute fracture. There are severe degenerative changes. IMPRESSION: Extensive degenerative and postoperative changes as above. Reviewed, Interpreted and Dictated by Roc Burkett III, MD Transcribed by Kandice Betancourt Authenticated and . [facility]
--- NOTE | 2023-09-21 12:14 | XR_ITS ---
FINAL REPORT CLINICAL HISTORY: Charcot Foot..pain COMPARISON: 08/18/2023 FINDINGS: LEFT TIBIA/FIBULA 2 views were obtained. Postoperative changes are seen in the distal tibia and ankle. There is no acute fracture. The joint spaces are intact. There is no soft tissue abnormality. IMPRESSION: Postoperative changes with no acute bony abnormality. Reviewed, Interpreted and Dictated by Roc Burkett III, MD Transcribed by Kandice Betancourt Authenticated and [facility]
== END 2023-09-21 23:59 ==
LOC: RAD 12:04
PROVIDERS: Visit Provider Podiatrist
DX: M25.572 Pain in left ankle and joints of left foot (principal); M14.672 Charcot's joint, left ankle and foot
CPT/HCPCS: 73590; 73610

== ENCOUNTER 2023-10-05 12:05 | Outpatient (CLI) | payer MEDICAID, SELFPAY ==
--- NOTE | 2023-10-05 12:09 | CT_ITS ---
FINAL REPORT TECHNIQUE: Thin section axial CT images with coronal and sagittal reformats were performed. 3D images were obtained and reviewed. This study was performed with techniques to keep radiation doses as low as reasonably achievable (ALARA). Individualized dose reduction techniques using automated exposure control or adjustment of mA and/or kV according to the patient''s size were employed. CLINICAL HISTORY: Evaluate left ankle for non-union COMPARISON: 05/11/2023 FINDINGS: An intramedullary maverick secures the distal tibia into the calcaneus, bridging the mortise. Orthopedic screws are noted in the calcaneus. The posterior talus is flattened. There appears to be ankylosis of the mortise and subtalar joint as best can be determined. There is diffuse subcutaneous edema along the lateral and anterior aspect of the ankle. The foot bones are diffusely osteopenic. There has been resection of the medial and middle cuneiform with fluid seen within the defect, image 92 of series 3 IMPRESSION: Fusion of the mortise and subtalar joints. Resection of the middle and medial cuneiform. Advanced osteopenia of the foot Reviewed, Interpreted and Dictated by Teddy Choudhury MD Transcribed by Yvonne Peters Authenticated and [facility]
== END 2023-10-05 23:59 ==
LOC: RAD 12:05
PROVIDERS: PCP Nurse Practitioner Family; Visit Provider Podiatrist
DX: M25.572 Pain in left ankle and joints of left foot (principal); S82.892K Other fracture of left lower leg, subsequent encounter for closed fracture with nonunion; M14.672 Charcot's joint, left ankle and foot; M96.0 Pseudarthrosis after fusion or arthrodesis
CPT/HCPCS: 73700

== ENCOUNTER 2023-12-15 09:54 | Day surgery (SDC) | payer MEDICAID, SELFPAY ==
[2023-12-15] MEDS: cefTRIAXone 1GM VIAL 1 GM IM (10:00)
[2023-12-15 10:17] VITALS: BP 121/78; PULSE 84; RESP 18; TEMP 36.1; O2SAT 96; BMI 42.8
[2023-12-15 10:26] LABS: POC Glucose,Bedside 197 (70-110)
[2023-12-15 11:26] VITALS: BP 132/74; PULSE 76; RESP 18; TEMP 36.3; O2SAT 93
--- NOTE | 2023-12-15 11:31 | EXP.OP.NOTE ---
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 She has a history of diabetic ulcers. This is a planned staged wound debridement and graft application for the DFU. Patient has failed conservative treatment, including multiple debridements, various wound dressings, off-loading, immobilization. The recent x-rays are negative for underlying bone infection. ABIs show adequate blood flow to heal the ankle wound. Any prior skin/soft tissue infection resolved with oral antibiotics. We discussed surgery. All risks and benefits were discussed including but not limited to: damage to blood vessels and nerves, bleeding, infection, wound complications, need for further surgery, implant/graft failure, need for removal of implant/graft, allergic reaction, prolonged or permanent swelling of the extremity, prolonged or permanent pain or deformity, CRPS/RSD, DVT/PE, and anesthetic complications including . Patient understands if wound/graft gets infected, it could lead to prolonged oral or IV antibiotics or increased risk of osteomyelitis, which could lead to possible loss of digits, partial foot or even BKA. No guarantees were given. All questions answered. The patient verbalized understanding and agreed to proceed with surgery. Consent was obtained. Operative findings:: Left anterior ankle diabetic ulcer noted. Minimal danny wound maceration and erythema. No purulence, drainage or SOI noted. Sharp excisional debridement with curette, 15 blade and forceps full-thickness: no new drainage or signs of infection. Bleeding noted. Left anterior wound: thru skin, subq: 100% granular, 1.7 x 1.6 x 0.2cm. Operative note:: On this date and time patient was deemed an appropriate surgical candidate. With informed consent signed, the patient was taken to the local procedure operating theater room. The patient was positioned supine. No anesthesia was induced. No tourniquet used. The left lower extremity was prepped and draped in normal sterile fashion. Left ankle wound debridement: Sharp excisional full-thickness debridement with curette, 15 blade and forceps down to/including subcutaneous tissue. No deep fascia or bone exposed. Wound flushed with gentamicin irrigation. Skin cleansed with saline. Mastisol applied around the wound edges. Application of Apligraf (Organogenesis wound graft): Graft was prepared in standard fashion. The entire graft was utilized. The graft was placed over the open wound and secured with Steri-Strips. Adaptic was applied over the graft followed by dry sterile dressing to left foot/ankle. The patient tolerated the procedure well, without complications. Materials: Organogenesis Aligraf wound graft x1 Discharge/Plan: Ok to discharge home when ready and vss. Patient is to maintain dressing clean dry and intact. Elevate on two pillows. Partial weight bearing to the left lower extremity in fracture boot with walker. Continue physical therapy. Follow up in one week for wound debridement and graft application #2. Condition: stable Disposition: same day Complications:: None
== END 2023-12-15 11:37 | disposition home or self-care (01) ==
PROVIDERS: Visit Provider Podiatrist
PROC: (CPT 15275; principal; 2023-12-15 11:00)
DX: E11.621 Type 2 diabetes mellitus with foot ulcer (principal); Z79.899 Other long term (current) drug therapy; Z79.4 Long term (current) use of insulin; E11.22 Type 2 diabetes mellitus with diabetic chronic kidney disease; I12.9 Hypertensive chronic kidney disease with stage 1 through stage 4 chronic kidney disease, or unspecified chronic kidney disease; N18.9 Chronic kidney disease, unspecified; M96.0 Pseudarthrosis after fusion or arthrodesis; E11.42 Type 2 diabetes mellitus with diabetic polyneuropathy
CPT/HCPCS: 15275; 82962; 96372; J0696; Q4101

== ENCOUNTER 2023-12-22 10:13 | Day surgery (SDC) | payer MEDICAID, SELFPAY ==
[2023-12-21 10:26] VITALS: BMI 42.8
[2023-12-22 10:38] VITALS: BP 112/78; PULSE 84; RESP 18; TEMP 36.1; O2SAT 96
[2023-12-22 10:42] LABS: POC Glucose,Bedside 215 (70-110)
[2023-12-22] MEDS: GENTAMICIN 80 MG/2 ML VIAL (12:00)
--- NOTE | 2023-12-22 12:15 | EXP.OP.NOTE ---
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 She has a history of diabetic ulcers. This is a planned staged wound debridement and graft application for the DFU. Patient has failed conservative treatment, including multiple debridements, various wound dressings, off-loading, immobilization. The recent x-rays are negative for underlying bone infection. ABIs show adequate blood flow to heal the ankle wound. Any prior skin/soft tissue infection resolved with oral antibiotics. We discussed surgery. All risks and benefits were discussed including but not limited to: damage to blood vessels and nerves, bleeding, infection, wound complications, need for further surgery, implant/graft failure, need for removal of implant/graft, allergic reaction, prolonged or permanent swelling of the extremity, prolonged or permanent pain or deformity, CRPS/RSD, DVT/PE, and anesthetic complications including . Patient understands if wound/graft gets infected, it could lead to prolonged oral or IV antibiotics or increased risk of osteomyelitis, which could lead to possible loss of digits, partial foot or even BKA. No guarantees were given. All questions answered. The patient verbalized understanding and agreed to proceed with surgery. Consent was obtained. Operative findings:: Left anterior ankle diabetic ulcer noted. No danny wound maceration and erythema. No purulence, drainage or SOI noted. Sharp excisional debridement with curette, 15 blade and forceps full-thickness: no new drainage or signs of infection. Bleeding noted. Left anterior wound: thru skin, subq: 100% granular, 1.4 x 1.4 x 0.2cm. Operative note:: On this date and time patient was deemed an appropriate surgical candidate. With informed consent signed, the patient was taken to the local procedure operating theater room. The patient was positioned supine. No anesthesia was induced. No tourniquet used. The left lower extremity was prepped and draped in normal sterile fashion. Left ankle wound debridement: Sharp excisional full-thickness debridement with curette, 15 blade and forceps down to/including subcutaneous tissue. No deep fascia or bone exposed. Wound flushed with gentamicin irrigation. Skin cleansed with saline. Mastisol applied around the wound edges. Application #2 of Apligraf (Organogenesis wound graft): Graft was prepared in standard fashion. The entire graft was utilized. The graft was placed over the open wound and secured with Steri-Strips. Adaptic was applied over the graft followed by dry sterile dressing to left foot/ankle. The patient tolerated the procedure well, without complications. Materials: Organogenesis Aligraf wound graft x1 Discharge/Plan: Ok to discharge home when ready and vss. Patient is to maintain dressing clean dry and intact. Elevate on two pillows. Partial weight bearing to the left lower extremity in fracture boot with walker. Continue physical therapy. Follow up in one week for wound debridement and graft application #3. Condition: stable Disposition: same day Complications:: None
[2023-12-22] MEDS: cefTRIAXone 1GM VIAL 1 GM IM (12:31)
[2023-12-22 12:35] VITALS: BP 151/80; PULSE 78; RESP 18; TEMP 36.6; O2SAT 97
[2023-12-22 12:37] VITALS: BP 151/80; PULSE 78; RESP 18; TEMP 36.6; O2SAT 97
== END 2023-12-22 12:35 | disposition home or self-care (01) ==
PROVIDERS: PCP Nurse Practitioner Family; Visit Provider Podiatrist
PROC: (CPT 15271; principal; 2023-12-22 11:00)
DX: E11.622 Type 2 diabetes mellitus with other skin ulcer (principal); E11.610 Type 2 diabetes mellitus with diabetic neuropathic arthropathy; E11.22 Type 2 diabetes mellitus with diabetic chronic kidney disease; I12.9 Hypertensive chronic kidney disease with stage 1 through stage 4 chronic kidney disease, or unspecified chronic kidney disease; N18.9 Chronic kidney disease, unspecified; Z79.899 Other long term (current) drug therapy; Z79.4 Long term (current) use of insulin; L97.321 Non-pressure chronic ulcer of left ankle limited to breakdown of skin
CPT/HCPCS: 15271; 82962; J0696; Q4101

== ENCOUNTER → 2023-12-29 10:58 | Day surgery (SDC) | payer MEDICAID, SELFPAY ==
[2023-12-24 15:02] VITALS: BMI 42.8
[2023-12-29 12:34] VITALS: BP 140/95; PULSE 79; RESP 18; TEMP 36.4; O2SAT 98; BMI 42.8
--- NOTE | 2023-12-29 14:17 | SUR.PREOP ---
patient checked in to pre op. procedure rescheduled for tomorrow at 1330 due to prolonged procedure ahead of patient.
[2023-12-29 14:23] LABS: POC Glucose,Bedside 224 (70-110)
== END ==
LOC: OUTP 10:59
PROVIDERS: PCP Nurse Practitioner Family; Visit Provider Podiatrist
DX: E11.622 Type 2 diabetes mellitus with other skin ulcer (principal); Z53.8 Procedure and treatment not carried out for other reasons
CPT/HCPCS: 82962

== ENCOUNTER 2023-12-30 13:20 | Day surgery (SDC) | payer MEDICAID, SELFPAY ==
[2023-12-30 13:41] VITALS: BP 123/83; PULSE 71; RESP 18; TEMP 36.4; O2SAT 97; BMI 42.8
[2023-12-30 14:00] LABS: POC Glucose,Bedside 178 (70-110)
[2023-12-30] MEDS: GENTAMICIN 80 MG/2 ML VIAL (14:30)
[2023-12-30 14:36] VITALS: BP 111/73; PULSE 75; RESP 18; TEMP 36.4; O2SAT 96
--- NOTE | 2023-12-30 14:39 | EXP.OP.NOTE ---
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 She has a history of diabetic ulcers. This is a planned staged wound debridement and graft application for the DFU. Patient has failed conservative treatment, including multiple debridements, various wound dressings, off-loading, immobilization. The recent x-rays are negative for underlying bone infection. ABIs show adequate blood flow to heal the ankle wound. Any prior skin/soft tissue infection resolved with oral antibiotics. We discussed surgery. All risks and benefits were discussed including but not limited to: damage to blood vessels and nerves, bleeding, infection, wound complications, need for further surgery, implant/graft failure, need for removal of implant/graft, allergic reaction, prolonged or permanent swelling of the extremity, prolonged or permanent pain or deformity, CRPS/RSD, DVT/PE, and anesthetic complications including . Patient understands if wound/graft gets infected, it could lead to prolonged oral or IV antibiotics or increased risk of osteomyelitis, which could lead to possible loss of digits, partial foot or even BKA. No guarantees were given. All questions answered. The patient verbalized understanding and agreed to proceed with surgery. Consent was obtained. Operative findings:: Left anterior ankle diabetic ulcer noted. No danny wound maceration and erythema. No purulence, drainage or SOI noted. Sharp excisional debridement with curette, 15 blade and forceps full-thickness: no new drainage or signs of infection. Bleeding noted. Left anterior wound: thru skin, subq: 100% granular, 1.2 x 1.2 x 0.2cm. Operative note:: On this date and time patient was deemed an appropriate surgical candidate. With informed consent signed, the patient was taken to the local procedure operating theater room. The patient was positioned supine. No anesthesia was induced. No tourniquet used. The left lower extremity was prepped and draped in normal sterile fashion. Left ankle wound debridement: Sharp excisional full-thickness debridement with curette, 15 blade and forceps down to/including subcutaneous tissue. No deep fascia or bone exposed. Wound flushed with gentamicin irrigation. Skin cleansed with saline. Mastisol applied around the wound edges. Application #3 of Apligraf (Organogenesis wound graft): Graft was prepared in standard fashion. The entire graft was utilized. The graft was placed over the open wound and secured with Steri-Strips. Adaptic was applied over the graft followed by dry sterile dressing to left foot/ankle. The patient tolerated the procedure well, without complications. Materials: Organogenesis Aligraf wound graft x1 Discharge/Plan: Ok to discharge home when ready and vss. Patient is to maintain dressing clean dry and intact. Elevate on two pillows. Partial weight bearing to the left lower extremity in fracture boot with walker. Continue physical therapy. Follow up on 01/04/24 for wound re-evaluation in the office. No graft application planned for next week as of now. Condition: stable Disposition: same day Complications:: None
[2023-12-30] MEDS: cefTRIAXone 1GM VIAL 1 GM IM (14:51)
[2023-12-30 15:00] VITALS: BP 116/76; PULSE 77; RESP 18; TEMP 36.4; O2SAT 96
== END 2023-12-30 15:00 | disposition home or self-care (01) ==
PROVIDERS: PCP Nurse Practitioner Family; Visit Provider Podiatrist
PROC: (CPT 15271; principal; 2023-12-30 14:15)
DX: E11.622 Type 2 diabetes mellitus with other skin ulcer (principal); Z79.4 Long term (current) use of insulin; Z79.899 Other long term (current) drug therapy; N18.9 Chronic kidney disease, unspecified; E11.22 Type 2 diabetes mellitus with diabetic chronic kidney disease; I13.0 Hypertensive heart and chronic kidney disease with heart failure and stage 1 through stage 4 chronic kidney disease, or unspecified chronic kidney disease; Z79.85 Long-term (current) use of injectable non-insulin antidiabetic drugs; L97.322 Non-pressure chronic ulcer of left ankle with fat layer exposed; Z68.41 Body mass index [BMI] 40.0-44.9, adult
CPT/HCPCS: 15271; 82962; J0696; Q4101

== ENCOUNTER 2024-01-20 12:42 | Day surgery (SDC) | payer MEDICAID, SELFPAY ==
[2024-01-20 13:04] VITALS: BP 127/82; PULSE 86; RESP 16; TEMP 36.4; O2SAT 97; BMI 40.1
[2024-01-20 13:09] LABS: POC Glucose,Bedside 178 (70-110)
[2024-01-20] MEDS: GENTAMICIN 80 MG/2 ML VIAL (13:40)
[2024-01-20 14:22] VITALS: BP 157/87; PULSE 77; RESP 16; TEMP 36.3; O2SAT 97
--- NOTE | 2024-01-20 14:24 | XR_ITS ---
FINAL REPORT CLINICAL HISTORY: wound debridement FINDINGS: LEFT FOOT 2 views of the left foot were obtained. There is partial amputation of the second digit at the level of the PIP joint. There is severe degenerative changes. Bones are osteopenic. There are postoperative changes of the ankle, rear and midfoot. Extensive chronic bony irregularity is seen. There is a plantar calcaneal spur. There is no convincing osteomyelitis. There is soft tissue swelling noted. IMPRESSION: No acute bony abnormality. Reviewed, Interpreted and Dictated by Roc Burkett III, MD Transcribed by Kezia Brito Authenticated and [facility]
--- NOTE | 2024-01-20 14:25 | EXP.OP.NOTE ---
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 She has a history of diabetic ulcers. This is a planned staged wound debridement and graft application for the DFU. Patient has failed conservative treatment, including multiple debridements, various wound dressings, off-loading, immobilization. The recent x-rays are negative for underlying bone infection. ABIs show adequate blood flow to heal the ankle wound. Any prior skin/soft tissue infection resolved with oral antibiotics. We discussed surgery. All risks and benefits were discussed including but not limited to: damage to blood vessels and nerves, bleeding, infection, wound complications, need for further surgery, implant/graft failure, need for removal of implant/graft, allergic reaction, prolonged or permanent swelling of the extremity, prolonged or permanent pain or deformity, CRPS/RSD, DVT/PE, and anesthetic complications including . Patient understands if wound/graft gets infected, it could lead to prolonged oral or IV antibiotics or increased risk of osteomyelitis, which could lead to possible loss of digits, partial foot or even BKA. No guarantees were given. All questions answered. The patient verbalized understanding and agreed to proceed with surgery. Consent was obtained. Planned staged graft procedure. 01/20/24: reports new pain to left medial ankle with WB. Plan for x-rays after surgery today. Will f/u with patient. Operative findings:: Left anterior ankle diabetic ulcer noted. No danny wound maceration and erythema. No purulence, drainage or SOI noted. Sharp excisional debridement with curette, 15 blade and forceps full-thickness: no new drainage or signs of infection. Bleeding noted. Overall wound looks smaller. Left anterior wound: thru skin, subq: 100% granular, 0.8 x 0.8 x 0.15cm. Operative note:: On this date and time patient was deemed an appropriate surgical candidate. With informed consent signed, the patient was taken to the local procedure operating theater room. The patient was positioned supine. No anesthesia was induced. No tourniquet used. The left lower extremity was prepped and draped in normal sterile fashion. Left ankle wound debridement: Sharp excisional full-thickness debridement with curette, 15 blade and forceps down to/including subcutaneous tissue. No deep fascia or bone exposed. Wound flushed with gentamicin irrigation. Skin cleansed with saline. Mastisol applied around the wound edges. Application #4 of Apligraf (Organogenesis wound graft): Graft was prepared in standard fashion. The entire graft was utilized. The graft was placed over the open wound and secured with Steri-Strips. Adaptic was applied over the graft followed by dry sterile dressing to left foot/ankle. The patient tolerated the procedure well, without complications. Materials: Organogenesis Aligraf wound graft x1 Discharge/Plan: Left ankle 3v, tib-fib 2v x-rays. Ok to discharge home when ready and vss. Patient is to maintain dressing clean dry and intact. Elevate on two pillows. WBaT to the left lower extremity in fracture boot with walker. Continue physical therapy. Follow up on 01/25/24 for wound re-evaluation in the office. No graft application planned for next week as of now. Condition: stable Disposition: same day Complications:: None
--- NOTE | 2024-01-20 14:29 | XR_ITS ---
FINAL REPORT CLINICAL HISTORY: Post op TTC COMPARISON: 09/21/2023 FINDINGS: LEFT ANKLE: Three views of the left ankle were obtained. Postoperative changes of a triple arthrodesis are present, with a maverick extending through the distal tibia, talus, and calcaneus. Multiple screws are noted, as well as a medial position to wire. Marked osteopenia is present as well as degenerative change in the ankle. The overall appearance is stable since the prior examination of September. No acute bony abnormality is identified. Soft tissue swelling remains present. IMPRESSION: Postoperative change as described above, stable since the prior exam of September 21. Reviewed, Interpreted and Dictated by Roc Burkett III, MD Transcribed by Shahla Sanchez Authenticated and [facility]
[2024-01-20 14:40] VITALS: BP 157/75; PULSE 77; RESP 16; O2SAT 98
== END 2024-01-20 14:44 | disposition home or self-care (01) ==
PROVIDERS: PCP Nurse Practitioner Family; Visit Provider Podiatrist
PROC: (CPT 15271; principal; 2024-01-20 13:00)
DX: E11.622 Type 2 diabetes mellitus with other skin ulcer (principal); E11.22 Type 2 diabetes mellitus with diabetic chronic kidney disease; N18.9 Chronic kidney disease, unspecified; I13.0 Hypertensive heart and chronic kidney disease with heart failure and stage 1 through stage 4 chronic kidney disease, or unspecified chronic kidney disease; L97.322 Non-pressure chronic ulcer of left ankle with fat layer exposed; E66.01 Morbid (severe) obesity due to excess calories; Z68.41 Body mass index [BMI] 40.0-44.9, adult; Z79.84 Long term (current) use of oral hypoglycemic drugs; Z79.899 Other long term (current) drug therapy; Z79.4 Long term (current) use of insulin
CPT/HCPCS: 15271; 73610; 73620; 82962; Q4101

== ENCOUNTER 2025-01-16 07:57 | Outpatient (CLI) | payer MEDICAID, SELFPAY ==
--- NOTE | 2025-01-16 | CA_ITS ---
APPROVED REPORT Exam: Pharmacologic Technologist: Candy Vaughan Ht: 5 ft 9 in Wt: 315 lbs BSA: 2.51 m2 HR: 75 bpm BP: 155/90 mmHg Stress Test Details Test: Lexiscan HR Resting HR: 75 bpm Max Heart Rate (APMHR): 170.866103 bpm Max HR Achieved: 89 bpm Target HR (85% APMHR): 144.614229 bpm % of APMHR: 52.35 Recovery HR: 84 bpm BP Resting BP: 155.0/90.0 mmHg Max BP: 168.0/79.0 mmHg Recovery BP: 154.0/81.0 mmHg ECG Resting ECG: Sinus rhythm, right bundle branch block Stress ECG Conclusion Symptoms: Stomach cramps, chest pressure, dyspnea Arrhythmias/Ectopy: Right bundle branch block ST-T Changes: Less than [address] depression. Conclusion: EKG unremarkable due to Lexiscan infusion. Electronically signed by : Janay Guajardo MD 01/16/2025 23:40:20
--- NOTE | 2025-01-16 08:00 | NM_ITS ---
APPROVED REPORT Exam: Nuclear Stress Test Indication: Chest pain, SOB, HTN, DM, High cholesterol, Family history Patient Location: Outpatient Stress Tech: Candy Vaughan [place] Tech:Heidi Bhatti, ARRT, RT (R)(N) Ht: 5 ft 9 in Wt: 315 lbs Bra Size: C HR: 76 bpm BP: 155/90 mmHg BSA: 2.51 m2 TID: 1.36 BMI: 46.5 History: Chest pain, SOB, HTN, DM, High cholesterol, Family history Procedure: Patient received 0.4 mg of intravenous Lexiscan, resting heart rate 76 bpm, resting blood pressure 155/90 mmHg, with Lexiscan maximum heart rate achieved was 103 bpm which is % of the maximum predicted heart rate and blood pressure was 168/79 mmHg. With Lexiscan, patient denied any complaint of chest pain. Cardiac Stress and Resting SPECT Images: Cardiac Stress and Resting SPECT images were obtained using technetium 99m Myoview 32.9 mCi stress and 10.11 mCi at rest. The patient could not lie on her abdomen. Therefore, prone stress imaging cannot be performed. This may affect diagnostic interpretation of the study findings. There is a large sized, moderate, predominantly reversible perfusion defect in the anterior LV wall. Findings are suggestive of reversible ischemia. There is low-normal global LV systolic function. There is mild hypokinesis of the anterior LV wall. LVEF is calculated at 50%. Conclusion: Large sized, moderate, predominantly reversible perfusion defect in the anterior LV wall. Findings are suggestive of reversible ischemia. There is low-normal global LV systolic function. There is mild hypokinesis of the anterior LV wall. LVEF is calculated at 50%. Electronically signed by : Janay Guajardo MD 01/16/2025 23:36:44
[2025-01-16] MEDS: REGADENOSON 0.4MG/5ML SYRINGE 0.4 MG IV (09:15)
[2025-01-16] MEDS: ISOTOPE MYOVIEW (PER STUDY) 1 DOSE IV (09:15)
[2025-01-16] MEDS: SODIUM CHLORIDE 0.9% 10ML SYR (RAD ONLY) 10 ML IV ×2 (09:15)
== END 2025-01-16 23:59 | disposition home or self-care (01) ==
LOC: RAD 07:58
PROVIDERS: PCP Nurse Practitioner Family; Visit Provider Physician Assistant
DX: Z01.810 Encounter for preprocedural cardiovascular examination (principal); I45.10 Unspecified right bundle-branch block; R94.39 Abnormal result of other cardiovascular function study; I10 Essential (primary) hypertension; R06.02 Shortness of breath; R94.31 Abnormal electrocardiogram [ECG] [EKG]; E11.9 Type 2 diabetes mellitus without complications; E78.00 Pure hypercholesterolemia, unspecified; R07.9 Chest pain, unspecified
CPT/HCPCS: 78452; 93017; 93018; A9502; J2785

== ENCOUNTER 2025-02-02 08:11 | Day surgery (SDC) | payer MEDICAID, SELFPAY ==
[2025-02-02] VITALS (13 sets, daily range): BP systolic 137–176; BP diastolic 73–101; PULSE 66–75; RESP 12–20; TEMP 36.1; O2SAT 90–95; BMI 46.3
--- NOTE | 2025-02-02 07:19 | IR_ITS ---
APPROVED REPORT Patient Location: Outpatient Donor Floor Technician: DAVON Bond RT (R) PROCEDURES Left heart catheterization Left ventriculogram Selective coronary angiogram Drug-eluting stent deployment to the ostial proximal LAD Intravascular ultrasound of the LAD Drug-eluting stent deployment to the first obtuse marginal artery INDICATION Coronary artery disease, Abnormal Myoview, Angina pectoris, IVUS guidance for complex coronary intervention, Informed consent was obtained prior to the procedure. COMPLICATIONS NONE Estimated Blood Loss: LESS THAN 10 ML TECHNIQUE One percent lidocaine used to anesthetize the right anterior aspect of the wrist. The right radial artery was accessed via the Seldinger technique. A 6 Welsh sheath was placed in the right radial artery. 2.5 mg of Verapamil, 800 mcg of nitroglycerin, 1mg Lidocaine and 5000 U Heparin were given through the arterial sheath. The JL3 catheter was also used to perform left heart catheterization, left ventriculogram and selective coronary angiogram. At the end of the diagnostic angiogram therapeutic Was administered giving a therapeutic ACT and the guide catheter was placed in left main artery followed by choice floppy wire placed into the LAD. A 2 mm x 15 mm noncompliant balloon was deployed at 15 and then 18 audrey to predilate the stenosis. Following this a 3 mm x 22 mm [place] frontier stent was placed in the ostial proximal segment of the LAD and deployed at 20 audrey reducing the critical stenosis to 0%. Intravascular ultrasound probe was then advanced which demonstrated wide patency excellent proximal distal transitioning of the stent with excellent apposition and expansion. Following this a Choice PT extra-support wire was placed in the second obtuse marginal artery where a 2.5 x 15 mm [place] frontier stent was deployed at 14 audrey to reduce the severe stenosis to 0%. ELÍAS-3 flow was present before and after procedure. At the end the procedure the apparatus was removed the sheath was removed and hemostasis was achieved using TR banding patient was transferred to the postop porting in stable condition. ELÍAS-3 flow was present in both the LAD and obtuse marginal artery before and after the procedure ANGIOGRAPHIC RESULTS The left main artery Normal The left anterior descending artery Has a critical ostial proximal 90 to 95% stenosis. There is additional 40% mid vessel stenosis The circumflex artery Is dominant and is proximally normal. The first obtuse marginal artery is large and has a mid vessel 70% hazy stenosis. The mid circumflex artery and has a long 40% eccentric stenosis. The terminal obtuse marginal artery has 20 and 30% stenosis The right coronary artery Is nondominant and has proximal 20% stenosis mid vessel 40% stenosis and a distal 40 to 50% stenosis. The right coronary is a small caliber vessel The PADILLA ventriculogram reveals Preserved 50% The left ventricular end-diastolic pressure 20 mmHg IMPRESSION Critical LAD disease as described above Severe disease in the first obtuse marginal artery Successful stenting of the ostial proximal LAD critical disease reduced to 0% with 1 drug-eluting stent Successful stenting of the first obtuse marginal artery severe disease reduced to 0% with 1 drug-eluting stent Preserved ejection fraction Elevated LVEDP PLAN 1. Effient and aspirin 2. LDL less than 55 to be achieved with high intensity statin 3. Aggressive diabetes control 4. Cardiac rehabilitation 5. Avoidance of tobacco products 6. Risk factor modification Electronically signed by : Karthik Aaron MD 02/02/2025 11:59:08
[2025-02-02 09:01] LABS: Basophils # 0.1 K/mm3 (0-0.2); Basophils % 1.2 % (0.1-2.0); Eosinophils # 0.4 Kmm3 (0.0-0.4); Eosinophils % 4.9 % (0.1-12.0); Hematocrit 42.8 % (37.0-47.0); Hemoglobin 13.9 g/dL (12.2-16.2); Immature Granulocytes # 0.02 10^3uL; Immature Granulocytes % 0.2 %; Lymphocytes # 2.7 K/mm3 (0.7-4.5); Lymphocytes % 33.3 % (10-50); Mean Corpuscular HGB Conc 32.5 g/dL (31.8-35.4); Mean Corpuscular Hemoglobin 29.2 pg (27.0-31.2); Mean Corpuscular Volume 89.9 fl (81-99); Mean Platelet Volume 9.7 fl (7.4-10.4); Monocytes # 0.8 K/mm3 (0.1-1.0); Monocytes % 9.4 % (1.7-9.3); Neutrophils # 4.2 K/mm3 (1.8-7.8); Nucleated Red Blood Cells # 0 10^3/uL; Nucleated Red Blood Cells % 0 %; Platelet Count 271 K/mm3 (142-424); Red Blood Count 4.76 M/mm3 (4.20-5.40); Red Cell Distribution Width 12.9 % (11.5-17.5); Red Cell Distribution Width-SD 42.5 fL; White Blood Count 8.2 K/mm3 (4.8-10.8)
[2025-02-02 09:10] LABS: Chloride 105 mmol/L (98-107); Potassium 4.7 mmoL/L (3.5-5.1); Sodium 138 mmol/L (136-145)
[2025-02-02 09:13] LABS: Blood Urea Nitrogen 26 mg/dl (7-17); Creatinine Clearance Estimated 43 mL/min (50-200); Estimated Glomerular Filt Rate 32 ml/min (>60); GFR (African American) 38 ML/MIN (>60)
[2025-02-02 09:14] LABS: Calcium 10.1 mg/dl (8.4-10.2); Glucose 102 mg/dl (74-100)
[2025-02-02] MEDS: HEPARIN 1,000 UNITS/500ML NS (CATH LAB) 3000 UNIT IV (10:03)
[2025-02-02] MEDS: 0.9 % SODIUM CHLORIDE 500 ML 25 ML IV (10:03)
[2025-02-02] MEDS: LIDOCAINE 1% 10ML MDV 10 ML IJ (10:03)
[2025-02-02] MEDS: NITROGLYCERIN 800MCG/8ML SYR (CATH LAB) 800 MCG IA ×2 (10:03→10:46)
[2025-02-02] MEDS: diphenhydrAMINE 50MG/ML VIAL 50 MG IV (10:03)
[2025-02-02] MEDS: HEPARIN 1,000 UNITS/ML 10ML VIAL (CATH LAB) 5000 UNIT IV ×2 (10:04→10:22)
[2025-02-02] MEDS: VERAPAMIL 2.5MG/ML 2ML VIAL 2.5 MG IV (10:05)
[2025-02-02] MEDS: PRASUGREL 10MG TAB 60 MG PO (10:42)
[2025-02-02] MEDS: FENTANYL 100MCG/2ML VIAL 50 MCG IV (10:50)
[2025-02-02] MEDS: MIDAZOLAM HCL 1MG/ML 5ML VIAL 1 MG IV (10:50)
[2025-02-02] MEDS: IOPAMIDOL-370 (76%);100ML BOTTLE 150 ML IV (11:20)
[2025-02-02 11:26] LABS: Anion Gap 8.7 mEq/L (5-15); Carbon Dioxide 29 mmol/L (22.0-30.0)
[2025-02-02] MEDS: ACETAMINOPHEN 325MG TAB 650 MG PO (13:11)
[2025-02-02 13:44] LABS: CATHL Activated Clotting Time 282 SEC (74-125)
[2025-02-02 13:45] LABS: CATHL Activated Clotting Time 278 SEC (74-125)
== END 2025-02-02 14:48 | disposition home or self-care (01) ==
PROVIDERS: PCP Nurse Practitioner Family; Visit Provider Internal Medicine
PROC: 4A023N7 Measurement of Cardiac Sampling and Pressure, Left Heart, Percutaneous Approach (ICD-10-PCS; CPT 93452; principal; 2025-02-02 07:00)
DX: I25.118 Atherosclerotic heart disease of native coronary artery with other forms of angina pectoris (principal); R94.39 Abnormal result of other cardiovascular function study; R94.31 Abnormal electrocardiogram [ECG] [EKG]; R93.1 Abnormal findings on diagnostic imaging of heart and coronary circulation; E11.22 Type 2 diabetes mellitus with diabetic chronic kidney disease; I12.9 Hypertensive chronic kidney disease with stage 1 through stage 4 chronic kidney disease, or unspecified chronic kidney disease; N18.9 Chronic kidney disease, unspecified; E11.40 Type 2 diabetes mellitus with diabetic neuropathy, unspecified; E78.5 Hyperlipidemia, unspecified; I73.9 Peripheral vascular disease, unspecified; E66.812 Obesity, class 2; Z68.42 Body mass index [BMI] 45.0-49.9, adult; Z82.49 Family history of ischemic heart disease and other diseases of the circulatory system; Z79.82 Long term (current) use of aspirin; Z79.84 Long term (current) use of oral hypoglycemic drugs; Z79.85 Long-term (current) use of injectable non-insulin antidiabetic drugs; Z79.4 Long term (current) use of insulin; Z79.899 Other long term (current) drug therapy; Z95.5 Presence of coronary angioplasty implant and graft
CPT/HCPCS: 92928 ×2; 93458; 80048; 85025; 85347; 92978; 99152; 99153; C1725; C1760; C1769; C1874; C9600; J1200; J1644; J2003; J3010; J7040; Q9967

== ENCOUNTER 2025-02-12 11:12 | Outpatient (CLI) | payer MEDICAID, SELFPAY ==
--- OUTSIDE RECORDS SUMMARY | 2025-01-22 11:00 | XMS_ITS | Encounter Summary ---
Author Organization Healthcare Address [address] [facility] [address] Care Team Providers Care Careers Adviser Name Role Phone Mary White APRN Primary Care Provider [phone] Reason for Referral * Consultation (Routine) - Closed Specialty Diagnoses / Procedures Referred By Thalia brandon Referred To Contact Oral Surgery Diagnoses Encounter for dental examination Brandyn Knowles DMD [address] [place] [address] Phone: tel: fax: Referral ID Status Reason Start Date Expiration Date V isits Requested Visits Authorized [id number] Closed Specialty Services Required 01/22/2025 07/24/2026 1 1 Scheduling Instructions Ext of 2, 4, 5, 12, 15, 19, 20, 29, 31 Encounter Details Date Type Department Care Team (Late st Contact Info) Description 01/22/2025 11:00 AM EDT Office Visit [facility] [address] [place] [address] Brandyn Knowles DMD [address] [place] [address] Encounter for dental examination (Primary Dx) Social History Tobacco Use Types Packs/Day Years Used Date Smoking Tobacco: Never Assessed Comments Unknown Sex and Gender Information Value Date Recorded Sex Assigned at Female 10/30/2024 1:44 PM EDT Legal Sex Female 7:38 PM EDT Gender Identity Female 10/30/2024 1:44 PM EDT Sexual Orientation Straight 10/30/2024 1: 44 PM EDT documented as of this encounter Miscellaneous Notes * Progress Notes - Brandyn Knowles DMD - 01/22/2025 11:00 AM EDT Reported Medical History Significant For: Heart Murmur/Rhythm Disorder (Dr. Aaron - [facility]) - Patient seeking care with cardiology. Discussed with patient if they could get diagnosis faxed from MD. [facility] A1c in the 's. Discussed with patient about healingin regards to diabetes control. Patient has had recent medication changes since A1c. CKD (Dr. Bell - [facility]) - Patient unaware of the stage but does deny dialysis Reported Allergies: NKDA Additional Comments: Referral to OS for 2, 4, 5, 12, 15, 19, 20, 29, 31 Patient is planning to have cardiovascular diagnosis, level of CKD and A1c changes faxed to the office. Patient interested in partials to replace missing spaces Patient Reports: No pain. Interested in extractions of broken roots Exam Reveals: Non restorative/root tips of 2, 4, 5, 12, 15, 19, 20, 29, 31 Swelling: neg Radiograph Findings: Perez indicated. Discussed PA findings with 19 After Discussing Options and Alternatives, Patient Desires: Ext's Plan of Action: Patient to return to office for hyg/exam Treatment Completed: Limited exam and PA Patient given the opportunity to ask questions and all questions answered. NV: Exam/Hyg documented in this encounter Plan of Treatment Upcoming Encounters Date Type Department Care Team (Late st Contact Info) Description 02/22/2025 11:00 AM EDT Office Visit [facility] [address] [place] [address] Brandyn Knowles DMD [address] [place] [address] 03/06/2025 9:00 AM EDT Office Visit [facility] [address] [place] [phone] Benson Brandyn Dora, DMD [address] [place] [address] 03/20/2025 11:00 AM EDT Office Visit [facility] [address] [place] [address] Brandyn Knowles Dora, DMD [address] [place] [address] Scheduled Referrals Name Type Priority Associated Diagnoses Order Schedule Referral to Oral Maxillofacial Surgery Outpatient Referral Routine Encounter for dental examination 1 Occurrences starting 01/22/2025 until 07/26/2026 documented as of this encounter Procedures Procedure Name Priority Date/Time Associated Diagnosis Comments LIMITED ORAL EVALUATION - PROBLEM FOCUSED Routine 01/22/2025 11:00 AM EDT Encounter for dental examination documented in this encounter Visit Diagnoses Diagnosis Encounter for dental examination- Primary documented in this encounter Additional Health Concerns Assessment Noted Time A Body Mass Index follow-up plan has been documented for the patient 01/22/2025 12:11 PM EDT documented as of this encounter Care Teams Careers Adviser Relationship Specialty Start Date End Date Mary White APRN [address] [place] [id number] PCP - General 01/08/23 documented as of this encounter
--- OUTSIDE RECORDS SUMMARY | 2025-02-12 11:14 | XMS_ITS | Clinical Summary ---
Author Organization Healthcare Address [address] [place] [address] Care Team Providers Care Power Press Tender Name Role Phone Mary White APRN Primary Care Provider [phone] Encounters Date Type Department Care Team Description 01/22/2025 11:00 AM EDT Office Visit [facility] [address] [place] [phone] Brandyn Knowles DMD Encounter for dental examination (Primary Dx) 01/22/2025 Travel from Last 3 Months Social History Tobacco Use Types Packs/Day Years Used Date Smoking Tobacco: Never Assessed Comments Unknown Sex and Gender Information Value Date Recorded Sex Assigned at Female 10/30/2024 1:44 PM EDT Legal Sex Female 7:38 PM EDT Gender Identity Female 10/30/2024 1:44 PM EDT Sexual Orientation Straight 10/30/2024 1: 44 PM EDT Last Filed Vital Signs Vital Sign Reading Time Taken Comments Blood Pressure 173/79 01/07/2023 1:32 PM EDT Pulse 68 01/07/2023 1:32 PM EDT Temperature - - Respiratory Rate - - Oxygen Saturation - - Inhaled Oxygen Concentration - - Weight 129 kg (285 lb) 01/07/2023 1:32 PM EDT Height 177.8 cm (5' 10 ) 01/07/2023 1:32 PM EDT Body Mass Index 40.89 01/07/2023 1:32 PM EDT Plan of Treatment Upcoming Encounters Date Type Department Care Team (Late st Contact Info) Description 02/22/2025 11:00 AM EDT Office Visit [facility] [address] [place] [address] Maribell Knowlesy A, DMD [address] [place] [address] 03/06/2025 9:00 AM EDT Office Visit [facility] [address] [place] [address] KnowlesMaribelly A, DMD [address] [place] [address] 03/20/2025 11:00 AM EDT Office Visit [facility] [address] [place] [address] Maribell Knowlesy A, DMD [address] [place] [address] Health Maintenance Due Date Last Done Comments Dental Oral Exam 1974 Dental Prophylaxis 1974 Dental X-Ray: Bitewings 1974 Dental X-Ray: Full Mouth 1974 [facility]-Depression Screening 1974 [facility]-HIV Screening 1974 [facility]-Hepatitis C Screening 1974 [facility]-/Child/Adol SDOH Screenings 1974 [facility]- SDOH Screenings 1992 [facility]-Adult SDOH Screenings 1992 [facility]-Hepatitis B Vaccines (1 of 3 - 19+ 3-dose series) 1993 [facility]-Pap Smear 1995 [facility]-Cervical Cancer Screening 2004 [facility]-HPV/Cotest 2004 [facility]-DTaP,Tdap,and Td Vaccines (2 - Td or Tdap) 04/26/2019 04/26/2009 CT Colonography 2019 Colonoscopy 2019 FIT-DNA 2019 FIT 2019 FOBT 2019 Sigmoidoscopy 2019 [facility]-Colorectal Cancer Screening 2019 [facility]-EMUFM-02 Vaccine ( - 2023-25 season) 2024 [facility]-Breast Cancer Screening 2024 [facility]-Pneumococcal Vaccine: 50+ Years (1 of 1 - PCV) 2024 [facility]-Zoster Vaccines (1 of 2) 2024 [facility]-Influenza Vaccine (Season Ended) 2025 [facility]-Obesity Intervention Completed 025, 10/30/2024, 10/30/2024, Additional history exists HPV Vaccines Aged Out No longer eligi ble based on patient's age to complete this topic [facility]-HIB Vaccines Aged Out No longer e ligible based on patient's age to complete this topic [facility]-Hepatitis A Vaccines Aged Out No longer eligible based on patient's age to complete this topic [facility]-IPV Vaccines Aged Out No longer e ligible based on patient's age to complete this topic [facility]-Rotavirus Vaccines Aged Out No lo nger eligible based on patient's age to complete this topic Procedures Procedure Name Priority Date/Time Associated Diagnosis Comments LIMITED ORAL EVALUATION - PROBLEM FOCUSED Routine 01/22/2025 11:00 AM EDT Encounter for dental examination from Last [address] [place] [address] [place] [address] MEDICAID [place] [employer] Care Teams Power Press Tender Relationship Specialty Start Date End Date Mary White, BREN [address] [place] [address] [address], [place] [address] PCP - General 01/08/23
--- OUTSIDE RECORDS SUMMARY | 2025-02-12 11:14 | XMS_ITS | Encounter Summary ---
Author Organization Healthcare Address [address] [facility] [address] [place] [address] Care Team Providers Care Registered Radiation Therapist Name Role Phone Mary White APRN Primary Care Provider [phone] [phone] Encounter Details Date Type Department Care Team (Latest Contact Info) Description 01/22/2025 Travel Social History Tobacco Use Types Packs/Day Years Used Date Smoking Tobacco: Never Assessed Comments Unknown Sex and Gender Information Value Date Recorded Sex Assigned at Female 10/30/2024 1:44 PM EDT Legal Sex Female 7:38 PM EDT Gender Identity Female 10/30/2024 1:44 PM EDT Sexual Orientation Straight 10/30/2024 1: 44 PM EDT documented as of this encounter Plan of Treatment Upcoming Encounters Date Type Department Care Team (Late st Contact Info) Description 02/22/2025 11:00 AM EDT Office Visit [facility] [address] [place] [address] Brandyn Knowles, DMD [address] [place] [phone] 03/06/2025 9:00 AM EDT Office Visit [facility] [address] [place] [phone] Brandyn Knowles, DMD [address] [place] [phone] 03/20/2025 11:00 AM EDT Office Visit [facility] [address] [place] [address] Brandyn Knowles, DMD [address] [place] [phone] documented as of this encounter Visit Diagnoses Not on filedocumented in this encounter Additional Health Concerns Assessment Noted Time A Body Mass Index follow-up plan has been documented for the patient 01/22/2025 12:11 PM EDT documented as of this encounter Care Teams Registered Radiation Therapist Relationship Specialty Start Date End Date Mary White APRN [address] [place] [phone] PCP - General 01/08/23 documented as of this encounter
[2025-02-12 11:58] LABS: Basophils # 0.1 K/mm3 (0-0.2); Basophils % 1.5 % (0.1-2.0); Eosinophils # 0.3 Kmm3 (0.0-0.4); Eosinophils % 4.4 % (0.1-12.0); Hematocrit 42.3 % (37.0-47.0); Hemoglobin 13.8 g/dL (12.2-16.2); Immature Granulocytes # 0.01 10^3uL; Immature Granulocytes % 0.1 %; Lymphocytes # 2.6 K/mm3 (0.7-4.5); Lymphocytes % 35.1 % (10-50); Mean Corpuscular HGB Conc 32.6 g/dL (31.8-35.4); Mean Corpuscular Hemoglobin 29.3 pg (27.0-31.2); Mean Corpuscular Volume 89.8 fl (81-99); Mean Platelet Volume 9.7 fl (7.4-10.4); Monocytes # 0.6 K/mm3 (0.1-1.0); Monocytes % 7.6 % (1.7-9.3); Neutrophils # 3.7 K/mm3 (1.8-7.8); Neutrophils % 51.3 % (37.0-80.0); Nucleated Red Blood Cells # 0 10^3/uL; Nucleated Red Blood Cells % 0 %; Platelet Count 257 K/mm3 (142-424); Red Blood Count 4.71 M/mm3 (4.20-5.40); Red Cell Distribution Width-SD 42.5 fL; White Blood Count 7.3 K/mm3 (4.8-10.8)
--- NOTE | 2025-02-12 12:00 | CA_ITS ---
FINAL REPORT CLINICAL HISTORY: PT HAD CATH WITH RIGHT RADIAL ACCESS ON 02/02/25,BRUISING AND KNOT RIGHT WRIST FINDINGS: Spectral and Doppler waveform evaluations of the right wrist was performed. Spectral analysis was performed. There is no evidence of pseudoaneurysm, fistula, or thrombus. IMPRESSION: No evidence of pseudoaneurysm, fistula, or thrombus. Reviewed, Interpreted and Dictated by Teddy Choudhury MD Transcribed by Yvonne Peters Authenticated and [facility]
[2025-02-12 12:08] LABS: Albumin Level 3.9 g/dl (3.5-5.0); Chloride 104 mmol/L (98-107)
[2025-02-12 12:09] LABS: Potassium 4.8 mmoL/L (3.5-5.1); Sodium 138 mmol/L (136-145)
[2025-02-12 12:11] LABS: Anion Gap 16.8 mEq/L (5-15); Bilirubin,Unconjugated 0.2 mg/dL (0.0-1.1); Blood Urea Nitrogen 41 mg/dl (7-17); Carbon Dioxide 22 mmol/L (22.0-30.0); Estimated Glomerular Filt Rate 28 ml/min (>60); GFR (African American) 34 ML/MIN (>60); Total Protein,Serum 7.2 g/dl (6.3-8.2)
[2025-02-12 12:12] LABS: Alanine Aminotransferase 19 U/L (12-78); Alkaline Phosphatase 92 U/L (38-126); Aspartate Amino Transferase 23 U/L (14-36); Bilirubin,Direct 0.2 mg/dl (0.0-0.4); Bilirubin,Indirect 0.3 mg/dL (0.0-0.9); Bilirubin,Total 0.5 mg/dl (0.2-1.3); Calcium 9.6 mg/dl (8.4-10.2); Chol/HDL Ratio 4.2 (1-3.5); Cholesterol 173 mg/dl (140-200); Glucose 180 mg/dl (74-100); HDL Cholesterol 41 mg/dl (40-60); Triglycerides 157 mg/dl (30-150); VLDL Cholesterol 31 mg/dL (0-40)
[2025-02-12 12:23] LABS: Direct LDL Cholesterol 72.12 mg/dL (100-129)
[2025-02-12 12:29] LABS: Free T4 (Free Thyroxine) 1.19 ng/dl (0.78-2.19)
[2025-02-12 12:45] LABS: Thyroid Stimulating Hormone 3.67 uIU/mL (0.465-4.68)
== END 2025-02-12 23:59 | disposition home or self-care (01) ==
PROVIDERS: PCP Nurse Practitioner Family; Visit Provider Physician Assistant
DX: I10 Essential (primary) hypertension (principal); E11.9 Type 2 diabetes mellitus without complications; S60.219A Contusion of unspecified wrist, initial encounter; M25.531 Pain in right wrist
CPT/HCPCS: 36415; 80048; 80061; 80076; 84439; 84443; 85025; 93931